=== PATIENT | male | born 1960 | race Caucasian/White ===

== ENCOUNTER 2023-01-31 10:18 | Inpatient (IN) | payer BC ==
[~2023-01-31] VITALS: Ht 188 cm; Wt 105.0 kg
[2023-01-31] MEDS ORDERED: normal saline 1000ML IV soln IVB ONE (10:55)
[2023-01-31 11:18] LABS: BASOPHILS % (AUTO) 0.2 % (0-1); EOSINOPHILS % (AUTO) 0.1 % (0-6); HEMATOCRIT 44.2 % (42.0-52.0); HEMOGLOBIN 14.7 g/dl (14.0-17.9); LYMPHOCYTES # (AUTO) 0.4 X10'3 (1.1-4.8); LYMPHOCYTES % (AUTO) 3.6 % (21-51); MEAN CORPUSCULAR HEMOGLOBIN 28.1 PG (27.0-31.0); MEAN CORPUSCULAR HGB CONC 33.3 g/dL (33.0-36.5); MEAN CORPUSCULAR VOLUME 84.3 FL (78-98); MEAN PLATELET VOLUME 8.9 FL (7.4-10.4); MONOCYTES % (AUTO) 9.8 % (2-12); NEUTROPHILS # (AUTO) 8.5 X10'3 (1.8-7.7); NEUTROPHILS % (AUTO) 86.3 % (42-75); PLATELET COUNT 249 X10'3 (140-440); RED BLOOD COUNT 5.24 X10'6 (4.70-6.10); RED CELL DISTRIBUTION WIDTH 15.5 % (11.5-14.5); WHITE BLOOD COUNT 9.9 X10'3 (4.5-11.0)
[2023-01-31 11:26] LABS: APTT 29 SECONDS (22-32)
[2023-01-31 11:28] LABS: ALANINE AMINOTRANSFERASE 34 U/L (12-78); ALBUMIN 2.7 G/DL (3.4-5.0); ALBUMIN/GLOBULIN RATIO 0.5 (1.1-1.5); ALKALINE PHOSPHATASE 87 IU/L (46-116); ANION GAP 12 (8-16); ASPARTATE AMINO TRANSFERASE 31 U/L (10-37); BILIRUBIN,TOTAL 0.4 MG/DL (0.1-1.0); BLOOD UREA NITROGEN 131 MG/DL (7-18); BUN/CREATININE RATIO 31.3 (10.0-20.0); CALCIUM 9.6 MG/DL (8.5-10.1); CHLORIDE 95 MMOL/L (99-107); CREATININE 4.18 MG/DL (0.60-1.10); GLUCOSE 134 MG/DL (70-104); LIPASE < 50 U/L (73-393); POTASSIUM 4.2 MMOL/L (3.5-5.1); SODIUM 131 MMOL/L (135-145); TOTAL CARBON DIOXIDE 23.8 MMOL/L (24-32); TOTAL PROTEIN 8.2 G/DL (6.4-8.2); eGFR 15 ML/MIN
[2023-01-31] MEDS ORDERED: normal saline 1000ml 1,000 ML IV ONE (11:35)
[2023-01-31] MEDS ORDERED: piperacillin/tazo 3.375gm/50ml 50 ML IV ONE (13:34)
[2023-01-31] MEDS ORDERED: ondansetron/PF 4mg/2ml inj IV PRN (14:20)
[2023-01-31] MEDS ORDERED: magnesium hydroxide 30ml (MOM) UD suspension PO PRN (14:20)
[2023-01-31] MEDS ORDERED: acetaminophen 325mg tablet PO PRN (14:20)
[2023-01-31] MEDS ORDERED: morphine 2 MG/ML inj. syringe IV PRN (14:20)
[2023-01-31] MEDS ORDERED: mag hydrox/Alum hydrox/simeth 30ml oral suspension PO PRN (14:20)
[2023-01-31] MEDS ORDERED: metoclopramide 5 mg/ml inj IV PRN (14:20)
[2023-01-31] MEDS ORDERED: LOSA25TA96 PO (14:25)
[2023-01-31] MEDS ORDERED: ASPI-611 PO (14:26)
[2023-01-31] MEDS ORDERED: CETI-194 PO (14:26)
[2023-01-31 14:50] LABS: CLARITY,URINE CLOUDY (Clear); COLOR,URINE YELLOW (Yellow); GLUCOSE, URINE NEGATIVE (Neg); KETONES,URINE NEGATIVE (Neg); LEUKOCYTE ESTERASE ,URINE NEGATIVE (Neg); NITRITES, URINE NEGATIVE (Neg); OCCULT BLOOD,URINE TRACE-INTACT (Neg); PROTEIN,URINE 30 mg/dl (Neg); UROBILINOGEN,URINE 0.2 E.U/dL (0.2-1.0)
[2023-01-31 14:56] LABS: UA COLLECTION TYPE CLN CATCH MIDSTREAM
[2023-01-31 15:04] LABS: BACTERIA,URINE 2+ /HPF (Neg); RBC,URINE 0-2 /HPF (0-2)
[2023-01-31 15:05] LABS: MUCUS STRANDS FEW /LPF (Neg); SQUAMOUS EPITHELIAL CELL,UR FEW /LPF (FEW); WBC CLUMPS,URINE FEW /HPF (NEGATIVE)
[2023-01-31 15:06] LABS: WBC CASTS 0-3 /LPF (NEGATIVE)
[2023-01-31] MEDS ORDERED: LOSA50TA64 PO (15:12)
--- NOTE | 2023-01-31 15:32 | NUR ---
called surgical to give report, Linda was unable to take report at this time. She will call back in 10 minutes.
[2023-01-31] MEDS: dextrose 5%-1/2 normal saline 1,000 ML IV SCH (15:48)
[2023-01-31 16:45] VITALS: BP 111/56
[2023-01-31] MEDS: HYDROcodone/acetaminophen 5mg/325mg tablet PO PRN (17:15)
--- NOTE | 2023-01-31 18:38 | NUR ---
Problems reprioritized. Patient report given, questions answered & plan of care reviewed with LEYDA CRABTREE RN.
--- NOTE | 2023-01-31 18:40 | NUR ---
Patient in room [facility] 358. I have received report from CHAR HANSON and had the opportunity to ask questions and assume patient care.
[2023-01-31] MEDS: docusate sod 100mg capsule PO SCH (20:00)
[2023-01-31] MEDS: losartan 50mg tablet PO SCH (20:03)
[2023-01-31] MEDS: heparin, porcine 5000 units/ml vial SQ SCH (20:04)
[2023-01-31 22:00] VITALS: BP 148/84
[2023-02-01] MEDS: dextrose 5%-1/2 normal saline 1,000 ML IV SCH ×4 (00:20→20:52)
--- NOTE | 2023-02-01 05:42 | NUR ---
AUDIO VISUAL FACILITIES ENGINEER documentation: I have reviewed and agree with all interventions, assessments performed and documented by SORAIDA HANSON.
[2023-02-01] MEDS: HYDROcodone/acetaminophen 5mg/325mg tablet PO PRN ×2 (05:53→11:24)
--- NOTE | 2023-02-01 06:30 | NUR ---
Problems reprioritized. Patient report given, questions answered & plan of care reviewed with ROSALEE HANSON.
--- NOTE | 2023-02-01 06:57 | NUR ---
Patient in room [facility] 358. I have received report from KAY HANSON and had the opportunity to ask questions and assume patient care.
[2023-02-01] MEDS: docusate sod 100mg capsule PO SCH ×2 (07:49→19:39)
[2023-02-01] MEDS: losartan 50mg tablet PO SCH ×2 (07:51→19:47)
[2023-02-01] MEDS: cetirizine 10mg tablet PO SCH (07:54)
[2023-02-01] MEDS: heparin, porcine 5000 units/ml vial SQ SCH ×2 (07:57→19:52)
[2023-02-01] MEDS ORDERED: aspirin 81mg, enteric-coated 1 TAB TABLET.DR PO SCH ×2 (08:00→08:29)
[2023-02-01] MEDS: morphine 2 MG/ML inj. syringe IV PRN ×2 (08:05→23:12)
[2023-02-01 09:39] LABS: ALBUMIN 2.3 G/DL (3.4-5.0); ANION GAP 15 (8-16); BLOOD UREA NITROGEN 98 MG/DL (7-18); BUN/CREATININE RATIO 52.1 (10.0-20.0); CALCIUM 9.1 MG/DL (8.5-10.1); CHLORIDE 103 MMOL/L (99-107); CREATININE 1.88 MG/DL (0.60-1.10); GLUCOSE 160 MG/DL (70-104); POTASSIUM 3.4 MMOL/L (3.5-5.1); SODIUM 137 MMOL/L (135-145); TOTAL CARBON DIOXIDE 18.8 MMOL/L (24-32); eGFR 37 ML/MIN
[2023-02-01 09:51] LABS: HEMOGLOBIN 14.4 g/dl (14.0-17.9); NEUTROPHILS # (AUTO) 3.1 X10'3 (1.8-7.7)
[2023-02-01 09:56] LABS: BASOPHILS % (AUTO) 1.3 % (0-1); EOSINOPHILS % (AUTO) 0 % (0-6); HEMATOCRIT 42.9 % (42.0-52.0); LYMPHOCYTES # (AUTO) 0.1 X10'3 (1.1-4.8); LYMPHOCYTES % (AUTO) 1.4 % (21-51); MEAN CORPUSCULAR HEMOGLOBIN 28.2 PG (27.0-31.0); MEAN CORPUSCULAR HGB CONC 33.6 g/dL (33.0-36.5); MEAN CORPUSCULAR VOLUME 84.1 FL (78-98); MEAN PLATELET VOLUME 8.8 FL (7.4-10.4); MONOCYTES # (AUTO) 0.4 X10'3 (0-0.9); MONOCYTES % (AUTO) 11.3 % (2-12); PLATELET COUNT 239 X10'3 (140-440); RED BLOOD COUNT 5.11 X10'6 (4.70-6.10); RED CELL DISTRIBUTION WIDTH 15.8 % (11.5-14.5); WHITE BLOOD COUNT 3.6 X10'3 (4.5-11.0)
[2023-02-01 10:00] VITALS: BP 93/60
[2023-02-01 10:42] LABS: PLATELET ESTIMATE NORMAL; TOTAL CELLS COUNTED 100
[2023-02-01 10:43] LABS: ANISOCYTOSIS 1+; MICROCYTOSIS 1+
[2023-02-01 12:53] LABS: BASOPHILS % (AUTO) 0.1 % (0-1); EOSINOPHILS % (AUTO) 0.1 % (0-6); HEMATOCRIT 42.6 % (42.0-52.0); HEMOGLOBIN 14.4 g/dl (14.0-17.9); LYMPHOCYTES # (AUTO) 0.5 X10'3 (1.1-4.8); LYMPHOCYTES % (AUTO) 5.5 % (21-51); MEAN CORPUSCULAR HEMOGLOBIN 28.4 PG (27.0-31.0); MEAN CORPUSCULAR HGB CONC 33.8 g/dL (33.0-36.5); MEAN CORPUSCULAR VOLUME 83.9 FL (78-98); MEAN PLATELET VOLUME 8.7 FL (7.4-10.4); MONOCYTES # (AUTO) 1.3 X10'3 (0-0.9); MONOCYTES % (AUTO) 12.6 % (2-12); NEUTROPHILS # (AUTO) 8.2 X10'3 (1.8-7.7); NEUTROPHILS % (AUTO) 81.7 % (42-75); PLATELET COUNT 244 X10'3 (140-440); RED BLOOD COUNT 5.07 X10'6 (4.70-6.10); RED CELL DISTRIBUTION WIDTH 15.6 % (11.5-14.5)
--- NOTE | 2023-02-01 17:58 | NUR ---
patient seen by Dr rees and Dr andersen. NG placed as abdomen distended. patient painful medicated as per EMAR . onlt 50mls clearish drainage observed. patient is for surgery in am per Dr andersen.
[2023-02-01 18:00] VITALS: BP 100/63
[2023-02-01] MEDS ORDERED: magnesium 2GM in 50ml NS 50 ML IV PRN (18:10)
[2023-02-01] MEDS ORDERED: potassium Cl 40MEQ/1/2NS 520ml 520 ML IV PRN (18:10)
[2023-02-01] MEDS ORDERED: magnesium 4gm in 100ml NS 100 ML IV PRN (18:10)
[2023-02-01] MEDS ORDERED: potassium Cl 20 mEq SR tablet PO PRN ×2 (18:10)
[2023-02-01] MEDS ORDERED: magnesium Cl slow-release 64mg tablet PO PRN (18:10)
--- NOTE | 2023-02-01 18:34 | NUR ---
Problems reprioritized. Patient report given, questions answered & plan of care reviewed with Lourdes HANSON.
--- NOTE | 2023-02-01 18:38 | NUR ---
Patient in room [facility] 347. I have received report from ROSALEE HANSON and had the opportunity to ask questions and assume patient care.
[2023-02-01] MEDS: piperacillin/tazo 4.5gm/100ml 100 ML IV SCH (19:06)
[2023-02-01] MEDS ORDERED: Potassium Cl 40 MEQ in sodium chloride 0.45% 500 ML IV ONE (19:20)
[2023-02-01] MEDS: K and/or MAG REPLACEMENT MC SCH (20:00)
[2023-02-01] MEDS: pantoprazole 40MG/NS 100ML BAG 100 ML IV SCH (20:05)
[2023-02-01 22:00] VITALS: BP 98/57
[2023-02-02] VITALS (16 sets, daily range): BP systolic 83–121; BP diastolic 44–72
--- NOTE | 2023-02-02 05:00 | NUR ---
Pt was Prepped for surgery.
--- NOTE | 2023-02-02 05:14 | NUR ---
Called Dr. Luis to make him aware of the abnormal EKG strip. I reported that there was a left bundle branch block, and an abnormal P axis rate. Hospitalist said, "that's okay", No orders were given.
[2023-02-02] MEDS: piperacillin/tazo 4.5gm/100ml 100 ML IV SCH ×2 (05:54→17:00)
[2023-02-02 06:36] LABS: BASOPHILS % (AUTO) 0.1 % (0-1); EOSINOPHILS % (AUTO) 0.2 % (0-6); HEMATOCRIT 40.8 % (42.0-52.0); HEMOGLOBIN 13.6 g/dl (14.0-17.9); LYMPHOCYTES # (AUTO) 0.8 X10'3 (1.1-4.8); LYMPHOCYTES % (AUTO) 6.2 % (21-51); MEAN CORPUSCULAR HEMOGLOBIN 28.1 PG (27.0-31.0); MEAN CORPUSCULAR HGB CONC 33.2 g/dL (33.0-36.5); MEAN CORPUSCULAR VOLUME 84.6 FL (78-98); MEAN PLATELET VOLUME 8.9 FL (7.4-10.4); MONOCYTES # (AUTO) 1.6 X10'3 (0-0.9); MONOCYTES % (AUTO) 11.8 % (2-12); NEUTROPHILS # (AUTO) 10.9 X10'3 (1.8-7.7); NEUTROPHILS % (AUTO) 81.7 % (42-75); PLATELET COUNT 241 X10'3 (140-440); RED BLOOD COUNT 4.82 X10'6 (4.70-6.10); WHITE BLOOD COUNT 13.4 X10'3 (4.5-11.0)
--- NOTE | 2023-02-02 06:36 | NUR ---
Problems reprioritized. Patient report given, questions answered & plan of care reviewed with ROSALEE HANSON.
[2023-02-02 06:39] LABS: PRE OP PARTIAL THROMB. TIME 29 SECONDS (22-32)
[2023-02-02 06:45] LABS: ALANINE AMINOTRANSFERASE 40 U/L (12-78); ALBUMIN 1.9 G/DL (3.4-5.0); ALBUMIN/GLOBULIN RATIO 0.4 (1.1-1.5); ALKALINE PHOSPHATASE 88 IU/L (46-116); ANION GAP 13 (8-16); ASPARTATE AMINO TRANSFERASE 35 U/L (10-37); BILIRUBIN,TOTAL 1.3 MG/DL (0.1-1.0); BLOOD UREA NITROGEN 112 MG/DL (7-18); BUN/CREATININE RATIO 42.7 (10.0-20.0); CALCIUM 9.4 MG/DL (8.5-10.1); CHLORIDE 105 MMOL/L (99-107); CREATININE 2.62 MG/DL (0.60-1.10); GLUCOSE 113 MG/DL (70-104); MAGNESIUM 2.7 MG/DL (1.5-2.4); PHOSPHORUS 4.3 MG/DL (2.3-4.5); POTASSIUM 4.4 MMOL/L (3.5-5.1); SODIUM 139 MMOL/L (135-145); TOTAL CARBON DIOXIDE 21.1 MMOL/L (24-32); TOTAL PROTEIN 6.7 G/DL (6.4-8.2); eGFR 25 ML/MIN
--- NOTE | 2023-02-02 06:51 | NUR ---
Patient in room [facility] 347. I have received report from KAY HANSON and had the opportunity to ask questions and assume patient care.
[2023-02-02 07:52] LABS: ANISOCYTOSIS 1+; MICROCYTOSIS 1+; PLATELET ESTIMATE NORMAL; TOTAL CELLS COUNTED 100
[2023-02-02] MEDS: cetirizine 10mg tablet PO SCH (08:00)
[2023-02-02] MEDS: docusate sod 100mg capsule PO SCH ×2 (08:00→20:00)
[2023-02-02] MEDS: K and/or MAG REPLACEMENT MC SCH ×2 (08:00→20:00)
[2023-02-02] MEDS: heparin, porcine 5000 units/ml vial SQ SCH ×2 (08:00→20:00)
[2023-02-02] MEDS: losartan 50mg tablet PO SCH ×2 (08:00→20:00)
[2023-02-02] MEDS: pantoprazole 40MG/NS 100ML BAG 100 ML IV SCH ×2 (08:13→21:17)
[2023-02-02] MEDS: dextrose 5%-1/2 normal saline 1,000 ML IV SCH (12:40)
[2023-02-02 12:50] LABS: BASOPHILS % (AUTO) 0.2 % (0-1); EOSINOPHILS % (AUTO) 0.3 % (0-6); HEMOGLOBIN 13.6 g/dl (14.0-17.9); LYMPHOCYTES # (AUTO) 0.8 X10'3 (1.1-4.8); LYMPHOCYTES % (AUTO) 5.2 % (21-51); MEAN CORPUSCULAR HEMOGLOBIN 27.6 PG (27.0-31.0); MEAN CORPUSCULAR HGB CONC 32.5 g/dL (33.0-36.5); MEAN PLATELET VOLUME 8.5 FL (7.4-10.4); MONOCYTES # (AUTO) 1.6 X10'3 (0-0.9); MONOCYTES % (AUTO) 10.7 % (2-12); NEUTROPHILS # (AUTO) 12.4 X10'3 (1.8-7.7); NEUTROPHILS % (AUTO) 83.6 % (42-75); PLATELET COUNT 256 X10'3 (140-440); RED BLOOD COUNT 4.94 X10'6 (4.70-6.10); RED CELL DISTRIBUTION WIDTH 15.9 % (11.5-14.5); WHITE BLOOD COUNT 14.9 X10'3 (4.5-11.0)
[2023-02-02 16:14] LABS: HBSAG SCREEN Negative (Negative); HEP B CORE AB, TOT Negative (Negative)
[2023-02-02] MEDS ORDERED: albumin (human) 25% 100ml IV 100 ML in dextrose 5% water 500ml 400 ML IV ONE (16:15)
[2023-02-02] MEDS ORDERED: albumin (Human) 5% 250ml 500 ML IV ONE ×2 (16:20→17:00)
[2023-02-02] MEDS ORDERED: morphine 4 MG/ML inj SYRINge IV PRN (16:30)
[2023-02-02] MEDS ORDERED: ringers solution, lacted 1,000 ML IV SCH (16:30)
[2023-02-02] MEDS ORDERED: proCHLORperazine 10 MG/2 ml inj IV PRN (16:30)
[2023-02-02] MEDS ORDERED: ondansetron/PF 4mg/2ml inj IV PRN (16:30)
[2023-02-02] MEDS ORDERED: morphine 2 MG/ML inj. syringe IV PRN (16:30)
[2023-02-02] MEDS ORDERED: meperidine/PF 25mg/ml syringe IV PRN ×3 (16:30)
[2023-02-02 16:55] LABS: ANION GAP 11 (8-16); BLOOD UREA NITROGEN 91 MG/DL (7-18); BUN/CREATININE RATIO 48.4 (10.0-20.0); CALCIUM 9.5 MG/DL (8.5-10.1); CHLORIDE 107 MMOL/L (99-107); CREATININE 1.88 MG/DL (0.60-1.10); GLUCOSE 122 MG/DL (70-104); POTASSIUM 3.9 MMOL/L (3.5-5.1); SODIUM 141 MMOL/L (135-145); TOTAL CARBON DIOXIDE 23.5 MMOL/L (24-32); eGFR 37 ML/MIN
[2023-02-02] MEDS ORDERED: etomidate 2mg/ml inj. ONE (17:05)
[2023-02-02] MEDS ORDERED: sevoflurane 250ml liquid IH ONE (17:05)
--- NOTE | 2023-02-02 17:05 | NUR ---
patient seen by Dr rees and Dr harvey, repeat CT done, labs, echo. patient is for OR per Dr Harvey. Taken to OR 1700hrs
[2023-02-02] MEDS ORDERED: midazolam 1 mg/ML 2ml injection ONE (17:16)
[2023-02-02] MEDS ORDERED: fentaNYL /PF 50mcg/ml 5ml ampule ONE (17:16)
[2023-02-02] MEDS ORDERED: rocuronium 10mg/ml inj IV ONE ×2 (17:46→19:02)
--- NOTE | 2023-02-02 18:39 | NUR ---
Patient in room [facility] 347. I have received report from ROSALEE HANSON and had the opportunity to ask questions and assume patient care.
[2023-02-02] MEDS ORDERED: BUPIVAcaine/PF 2.5 mg/ml (0.25%) 30ml vial ONE (18:40)
[2023-02-02] MEDS ORDERED: BUPIVACAINE liposomal/PF 13.3 MG/ML vial IM ONE (18:40)
[2023-02-02] MEDS: dextrose 5%-lactated ringers 1,000 ML IV SCH (19:15)
[2023-02-02] MEDS ORDERED: HYDROmorphone inj. 0.5 MG/0.5 ML DISP.SYRIN IV PRN (19:15)
[2023-02-02] MEDS ORDERED: neostigmine methylsulfate 1 MG/ML 10ml vial ONE (19:29)
[2023-02-02] MEDS ORDERED: glycopyrrolate 0.2mg/ml inj ONE (19:29)
--- NOTE | 2023-02-02 19:35 | NUR ---
Received from OR via , accompanied by Anesthesiologist VIGNESH and report given by Anesthesiolgist. PATIENT WITH NGT TO LOW CONTINOUS. ABDOMINAL DRESSING IS CDI. VSS. 10L MASK ON WITH 996% SATURATIONS. PATIENT WITH BETHANY DRAIN THAT WAS EMPTIED FOR 60CC 0F WASH. PATIENT WITH 20G PIVIN RIGHT AC RUNNING LR AT 100. SCDS DONNED. Addendum: 02/02/23 at 1942 by Dre Ny RN, RN Amended: Links added.
[2023-02-02 20:05] LABS: ABG BASE EXCESS -7.7 mmol/L (-2.0-2.0); ABG HCO3 17.3 mmol/L (22.0-26.0); ABG OXYGEN SATURATION 93.7 % (94-97); ABG PCO2 (T) 33.5 mmHg (35.0-48.0); ABG PO2 (T) 71.5 mmHg (75.0-100.0); FCOHb 0.6 % (0.0-3.9); FLOW 3 L/min; FMetHb 0.7 % (0.0-1.5); FO2Hb 92.5 % (94-97); PATIENT TEMPERATURE 36.8; TOTAL HEMOGLOBIN 13.9 G/dl (14.0-17.9)
[2023-02-02] MEDS ORDERED: acetaminophen 1,000mg/100ml IV 100 ML IV STA (20:06)
--- NOTE | 2023-02-02 20:25 | NUR ---
REPORT GIVEN AND ALL QUESTIONS ANSWERED. PATIENT TRANSFERRED TO SURG. LABELED BELONGINGS PRESENT AND DELIVERED TO ROOM. RN PRESENT ALL CRITERIA FOR TRANSFER BACK TO THE FLOOR HAS BEEN ACHIEVED. VSS. PAIN AT A TOLERABLE LEVEL. BED LOW, CALL LIGHT PRESENT AND 2 RAILS DOWN. RN AWARE THAT PATIENT HAS ARRIVED. PRUDENCE PRESENT TO ACCEPT CARE OF PATIENT. Addendum: 02/02/23 at 2037 by Dre Ny RN, RN Amended: Links added.
--- NOTE | 2023-02-02 20:30 | NUR ---
MD UMANZOR NOTIFIED OF ABG PER MD MEDELLIN REQUEST. PATIENT TAKEN TO FLOOR VIA BED AND MET BY RN PRUDENCE. SET UP WITH VS AND RN PRESENT TO ACCEPT AND ASSESS PATIENT. PATIENT HOOKED TO LOW SUCTION AND PLACED ON O2 VIA NASAL CANNULA. BETHANY WITH UNDER 30CC OF SEROSANGUENOUS DRAINAGE IN BULB AND ABDOMINAL DRESSING WAS CDI. PIV STILL RUNNING ACETAMINOPHEN. NO BELONGINGS WITH PATIENT IN RR. CARE ASSUMED BY TICO. Addendum: 02/02/23 at 2031 by Dre Chaudhry - VALENTIN HANSON Amended: Links added.
--- NOTE | 2023-02-02 20:44 | NUR ---
PATIENT BACK IN THE ROOM FROM OR AND VSS AND WILL CONTINUE TO MONITOR.
--- NOTE | 2023-02-02 21:08 | NUR ---
Heparin not administered, patient just coming back from OR and plt count at 256
[2023-02-03] VITALS (13 sets, daily range): BP systolic 94–123; BP diastolic 46–74
[2023-02-03] MEDS: dextrose 5%-lactated ringers 1,000 ML IV SCH ×4 (01:55→23:23)
[2023-02-03] MEDS: dextrose 5%-1/2 normal saline 1,000 ML IV SCH (02:20)
[2023-02-03 04:46] LABS: BASOPHILS % (AUTO) 0.2 % (0-1); EOSINOPHILS % (AUTO) 0.1 % (0-6); HEMATOCRIT 40.5 % (42.0-52.0); HEMOGLOBIN 13.4 g/dl (14.0-17.9); LYMPHOCYTES # (AUTO) 0.2 X10'3 (1.1-4.8); LYMPHOCYTES % (AUTO) 1.1 % (21-51); MEAN CORPUSCULAR HEMOGLOBIN 27.7 PG (27.0-31.0); MEAN CORPUSCULAR VOLUME 83.9 FL (78-98); MEAN PLATELET VOLUME 8.6 FL (7.4-10.4); MONOCYTES # (AUTO) 1.6 X10'3 (0-0.9); MONOCYTES % (AUTO) 8.7 % (2-12); NEUTROPHILS # (AUTO) 16.2 X10'3 (1.8-7.7); NEUTROPHILS % (AUTO) 89.9 % (42-75); PLATELET COUNT 269 X10'3 (140-440); RED BLOOD COUNT 4.83 X10'6 (4.70-6.10); RED CELL DISTRIBUTION WIDTH 16.4 % (11.5-14.5)
[2023-02-03 04:51] LABS: ALANINE AMINOTRANSFERASE 34 U/L (12-78); ALBUMIN 1.8 G/DL (3.4-5.0); ALBUMIN/GLOBULIN RATIO 0.5 (1.1-1.5); ALKALINE PHOSPHATASE 70 IU/L (46-116); ANION GAP 14 (8-16); ASPARTATE AMINO TRANSFERASE 44 U/L (10-37); BILIRUBIN,TOTAL 1.6 MG/DL (0.1-1.0); BLOOD UREA NITROGEN 82 MG/DL (7-18); BUN/CREATININE RATIO 43.9 (10.0-20.0); CALCIUM 8.6 MG/DL (8.5-10.1); CHLORIDE 111 MMOL/L (99-107); CREATININE 1.87 MG/DL (0.60-1.10); GLUCOSE 152 MG/DL (70-104); MAGNESIUM 2.5 MG/DL (1.5-2.4); PHOSPHORUS 3.6 MG/DL (2.3-4.5); POTASSIUM 4.3 MMOL/L (3.5-5.1); SODIUM 145 MMOL/L (135-145); TOTAL CARBON DIOXIDE 20.4 MMOL/L (24-32); TOTAL PROTEIN 5.8 G/DL (6.4-8.2); eGFR 37 ML/MIN
[2023-02-03] MEDS: piperacillin/tazo 4.5gm/100ml 100 ML IV SCH ×2 (05:37→17:51)
--- NOTE | 2023-02-03 06:19 | NUR ---
Problems reprioritized. Patient report given, questions answered & plan of care reviewed with CÉSAR HANSON.
[2023-02-03 07:08] LABS: ANISOCYTOSIS 1+; PLATELET ESTIMATE NORMAL; TOTAL CELLS COUNTED 100
[2023-02-03 07:09] LABS: ROULEAUX 1+; TARGET CELLS FEW
[2023-02-03] MEDS: pantoprazole 40MG/NS 100ML BAG 100 ML IV SCH ×2 (07:44→21:05)
[2023-02-03] MEDS: docusate sod 100mg capsule PO SCH ×2 (07:50→21:11)
[2023-02-03] MEDS: cetirizine 10mg tablet PO SCH (07:50)
[2023-02-03] MEDS: heparin, porcine 5000 units/ml vial SQ SCH ×2 (07:51→21:13)
[2023-02-03] MEDS: losartan 50mg tablet PO SCH ×2 (07:52→21:12)
[2023-02-03] MEDS: K and/or MAG REPLACEMENT MC SCH ×2 (07:52→20:00)
--- NOTE | 2023-02-03 09:03 | NUR ---
LAB CALLED WITH INITIAL RESULTS OF PERITONEAL FLUID COLLECTION: GRAM NEGATIVE RODS. NOTIFIED MD VIA [facility]: Message: ROOM 3047B [facility] - PERITONEAL FLUID RESULTS (LAB) PLEASE TAKE A LOOK AT LAB RESULTS - THERE ARE GRAM NEGATIVE RODS, AND GRAM + RODS COCCI AND CLUSTERS OVERALL LOTS OF WBC, LAB WILL KNOW MORE AT END OF DAY - EDELMIRA Yu RN [id number]
[2023-02-03] MEDS ORDERED: dextrose 5%-normal saline 1,000 ML IV SCH (13:50)
[2023-02-03] MEDS ORDERED: vancomycin/NS 1 GM ADD-VANTAGE 250 ML IV SCH (15:00)
[2023-02-03 15:29] LABS: CLARITY,URINE SLIGHTLY CLOUDY (Clear); COLOR,URINE YELLOW (Yellow); GLUCOSE, URINE NEGATIVE (Neg); KETONES,URINE NEGATIVE (Neg); LEUKOCYTE ESTERASE ,URINE NEGATIVE (Neg); NITRITES, URINE NEGATIVE (Neg); OCCULT BLOOD,URINE SMALL (Neg); PROTEIN,URINE TRACE mg/dl (Neg)
[2023-02-03 15:30] LABS: UA COLLECTION TYPE FOLEY CATH
[2023-02-03 15:43] LABS: MUCUS STRANDS FEW /LPF (Neg); SQUAMOUS EPITHELIAL CELL,UR FEW /LPF (FEW)
[2023-02-03 15:45] LABS: SODIUM,URINE RANDOM < 15 MEQ/L; TOTAL PROTEIN,URINE RANDOM 58.3 MG/DL
[2023-02-03 15:47] LABS: BACTERIA,URINE FEW /HPF (Neg); RBC,URINE 0-2 /HPF (0-2); WBC,URINE 0-4 /HPF (0-4)
[2023-02-03 16:33] LABS: UA EOSINOPHILS NO EOS /HPF
--- NOTE | 2023-02-03 23:52 | NUR ---
Pts residual was 5ml,NG tube removed per MDs order
[2023-02-04] MEDS: piperacillin/tazo 4.5gm/100ml 100 ML IV SCH ×2 (04:54→16:49)
[2023-02-04 05:47] LABS: ALANINE AMINOTRANSFERASE 36 U/L (12-78); ALBUMIN 1.6 G/DL (3.4-5.0); ALBUMIN/GLOBULIN RATIO 0.4 (1.1-1.5); ALKALINE PHOSPHATASE 72 IU/L (46-116); ANION GAP 9 (8-16); ASPARTATE AMINO TRANSFERASE 54 U/L (10-37); BILIRUBIN,TOTAL 1.4 MG/DL (0.1-1.0); BLOOD UREA NITROGEN 49 MG/DL (7-18); BUN/CREATININE RATIO 42.2 (10.0-20.0); CALCIUM 8.8 MG/DL (8.5-10.1); CHLORIDE 118 MMOL/L (99-107); CREATININE 1.16 MG/DL (0.60-1.10); GLUCOSE 128 MG/DL (70-104); MAGNESIUM 2.3 MG/DL (1.5-2.4); PHOSPHORUS 2.6 MG/DL (2.3-4.5); POTASSIUM 4.1 MMOL/L (3.5-5.1); SODIUM 152 MMOL/L (135-145); TOTAL PROTEIN 5.6 G/DL (6.4-8.2); eGFR 64 ML/MIN
[2023-02-04 05:48] LABS: BASOPHILS % (AUTO) 0.1 % (0-1); EOSINOPHILS # (AUTO) 0.1 X10'3 (0-0.9); EOSINOPHILS % (AUTO) 0.5 % (0-6); HEMATOCRIT 37.7 % (42.0-52.0); HEMOGLOBIN 12.4 g/dl (14.0-17.9); LYMPHOCYTES # (AUTO) 0.7 X10'3 (1.1-4.8); LYMPHOCYTES % (AUTO) 3.7 % (21-51); MEAN CORPUSCULAR HEMOGLOBIN 27.6 PG (27.0-31.0); MEAN CORPUSCULAR HGB CONC 32.9 g/dL (33.0-36.5); MEAN CORPUSCULAR VOLUME 83.9 FL (78-98); MEAN PLATELET VOLUME 8.6 FL (7.4-10.4); MONOCYTES # (AUTO) 1.6 X10'3 (0-0.9); MONOCYTES % (AUTO) 8.3 % (2-12); NEUTROPHILS % (AUTO) 87.4 % (42-75); PLATELET COUNT 281 X10'3 (140-440); RED BLOOD COUNT 4.49 X10'6 (4.70-6.10); RED CELL DISTRIBUTION WIDTH 16.2 % (11.5-14.5); WHITE BLOOD COUNT 19.5 X10'3 (4.5-11.0)
[2023-02-04 06:00] VITALS: BP 140/62
--- NOTE | 2023-02-04 06:08 | NUR ---
Problems reprioritized. Patient report given, questions answered & plan of care reviewed with Any HANSON.
--- NOTE | 2023-02-04 06:45 | NUR ---
Patient in room [facility] 347B. I have received report from VALENTIN CHINCHILLA and had the opportunity to ask questions and assume patient care.
[2023-02-04] MEDS: K and/or MAG REPLACEMENT MC SCH ×2 (08:00→20:00)
[2023-02-04] MEDS: dextrose 5%-lactated ringers 1,000 ML IV SCH ×2 (09:50→16:49)
[2023-02-04 10:00] VITALS: BP 145/82
[2023-02-04] MEDS: pantoprazole 40MG/NS 100ML BAG 100 ML IV SCH ×2 (10:11→20:29)
[2023-02-04] MEDS: losartan 50mg tablet PO SCH ×2 (10:18→20:31)
[2023-02-04] MEDS: docusate sod 100mg capsule PO SCH ×2 (10:18→20:31)
[2023-02-04] MEDS: cetirizine 10mg tablet PO SCH (10:19)
[2023-02-04] MEDS: vancomycin/NS 1 GM ADD-VANTAGE 250 ML IV SCH ×2 (10:20→22:05)
[2023-02-04] MEDS: heparin, porcine 5000 units/ml vial SQ SCH ×2 (10:20→20:31)
[2023-02-04 18:00] VITALS: BP 149/87
[2023-02-04 22:00] VITALS: BP 119/78
[2023-02-05] MEDS: dextrose 5%-lactated ringers 1,000 ML IV SCH ×2 (03:15→06:30)
[2023-02-05] MEDS: piperacillin/tazo 4.5gm/100ml 100 ML IV SCH (05:55)
--- NOTE | 2023-02-05 06:15 | NUR ---
Patient in room [facility] 347. I have received report from Germaine HANSON and had the opportunity to ask questions and assume patient care.
[2023-02-05 06:57] LABS: BASOPHILS % (AUTO) 0.1 % (0-1); EOSINOPHILS # (AUTO) 0.3 X10'3 (0-0.9); EOSINOPHILS % (AUTO) 1.1 % (0-6); HEMATOCRIT 38.4 % (42.0-52.0); HEMOGLOBIN 12.6 g/dl (14.0-17.9); LYMPHOCYTES % (AUTO) 3.8 % (21-51); MEAN CORPUSCULAR HEMOGLOBIN 27.6 PG (27.0-31.0); MEAN CORPUSCULAR HGB CONC 32.9 g/dL (33.0-36.5); MEAN CORPUSCULAR VOLUME 83.8 FL (78-98); MEAN PLATELET VOLUME 8.4 FL (7.4-10.4); MONOCYTES # (AUTO) 1.8 X10'3 (0-0.9); NEUTROPHILS # (AUTO) 23.2 X10'3 (1.8-7.7); PLATELET COUNT 321 X10'3 (140-440); RED BLOOD COUNT 4.58 X10'6 (4.70-6.10); RED CELL DISTRIBUTION WIDTH 16.2 % (11.5-14.5)
--- NOTE | 2023-02-05 06:58 | NUR ---
Problems reprioritized. Patient report given, questions answered & plan of care reviewed with VALENTIN FARRELL & VALENTIN JASON.
[2023-02-05 07:00] VITALS: BP 152/86
[2023-02-05 07:01] LABS: WHITE BLOOD COUNT 26.4 X10'3 (4.5-11.0)
[2023-02-05 07:09] LABS: ALANINE AMINOTRANSFERASE 39 U/L (12-78); ALBUMIN 1.8 G/DL (3.4-5.0); ALBUMIN/GLOBULIN RATIO 0.4 (1.1-1.5); ALKALINE PHOSPHATASE 85 IU/L (46-116); ANION GAP 9 (8-16); ASPARTATE AMINO TRANSFERASE 50 U/L (10-37); BILIRUBIN,TOTAL 0.9 MG/DL (0.1-1.0); BLOOD UREA NITROGEN 37 MG/DL (7-18); BUN/CREATININE RATIO 38.5 (10.0-20.0); CHLORIDE 118 MMOL/L (99-107); CREATININE 0.96 MG/DL (0.60-1.10); GLUCOSE 122 MG/DL (70-104); MAGNESIUM 2.1 MG/DL (1.5-2.4); PHOSPHORUS 3.1 MG/DL (2.3-4.5); POTASSIUM 4.2 MMOL/L (3.5-5.1); SODIUM 153 MMOL/L (135-145); TOTAL PROTEIN 6.1 G/DL (6.4-8.2); eGFR 79 ML/MIN
--- NOTE | 2023-02-05 07:11 | NUR ---
CRITICAL WBC 26.4, DR CAZARES PAGED AWAITING CALL BACK
[2023-02-05 07:21] LABS: TOTAL CELLS COUNTED 100
[2023-02-05 07:22] LABS: ANISOCYTOSIS 1+; PLATELET ESTIMATE NORMAL
[2023-02-05] MEDS: pantoprazole 40MG/NS 100ML BAG 100 ML IV SCH ×2 (07:54→20:06)
[2023-02-05] MEDS: K and/or MAG REPLACEMENT MC SCH ×2 (08:00→20:00)
[2023-02-05] MEDS: cetirizine 10mg tablet PO SCH (08:02)
[2023-02-05] MEDS: docusate sod 100mg capsule PO SCH ×2 (08:03→20:05)
[2023-02-05] MEDS: losartan 50mg tablet PO SCH ×2 (08:04→20:05)
[2023-02-05] MEDS: heparin, porcine 5000 units/ml vial SQ SCH ×2 (08:05→20:05)
[2023-02-05] MEDS: vancomycin/NS 1 GM ADD-VANTAGE 250 ML IV SCH ×2 (09:02→20:09)
--- NOTE | 2023-02-05 09:43 | NUR ---
Initial: Pt presented with c/o abdominal pain and admit for JUDITH, possible SBO, peritonitis, and ruptured appendix. Pt with septic shock per MD note. Pt currently POD #3 s/p exploratory laparotomy with open appendectomy. Pt has been NPO since admit. Per EMR pt continues with abdominal distention and pain. Recommend advancing to regular diet as medically indicated and initiating nutrition support if unable to advance PO diet. Noted pt receiving D5LR at 125 mL/hr providing 510 kcal/day. LBM 01/31. Pt receiving routine bowel care and with PRN MoM and Reglan available. No appropriate nutrition intervention at this time in view of NPO status. Will continue to follow closely. Recommendations: 1) Advance to regular diet as medically indicated 2) Initiate nutrition support if unable to advance PO diet 3) Routine bowel care 4) Weekly scaled weights Addendum: 02/05/23 at [address] Amended: Links added.
[2023-02-05 10:00] VITALS: BP 169/90
[2023-02-05] MEDS ORDERED: normal saline 1000ml 1,000 ML IV SCH (12:15)
--- NOTE | 2023-02-05 12:56 | NUR ---
Message: Rupert ArnettB, Pt has a BP of 165/92. There are no PRN high BP meds. Did you want a med started for him? Dong [phone]
--- NOTE | 2023-02-05 14:10 | NUR ---
Pt had an afternoon BP of 165/92 and had no PRN BP meds. Dr notified and no orders put in. Will continue to monitor pt. Pt is asymptomatic and feels good.
[2023-02-05] MEDS: piperacillin/tazo 3.375gm/50ml 50 ML IV SCH (16:26)
[2023-02-05] MEDS ORDERED: VANCOMYCIN LEVEL IV ONE (16:30)
[2023-02-05 18:00] VITALS: BP 167/90
--- NOTE | 2023-02-05 18:31 | NUR ---
Problems reprioritized. Patient report given, questions answered & plan of care reviewed with Prudence RN. Pt stable at shift report.
--- NOTE | 2023-02-05 18:53 | NUR ---
Patient in room [facility] 347. I have received report from CASIE HANSON and had the opportunity to ask questions and assume patient care.
[2023-02-05] MEDS: dextrose 5%-water 1,000 ML IV SCH (20:14)
[2023-02-05 22:00] VITALS: BP 161/91
--- NOTE | 2023-02-05 23:11 | NUR ---
Charting by Annalisa LINARES reviewed by Glenn Velásquez RN
[2023-02-06] MEDS: piperacillin/tazo 3.375gm/50ml 50 ML IV SCH ×4 (00:34→22:53)
--- NOTE | 2023-02-06 06:24 | NUR ---
Problems reprioritized. Patient report given, questions answered & plan of care reviewed with APOLINAR HANSON.
[2023-02-06 07:00] VITALS: BP 139/85
[2023-02-06] MEDS: heparin, porcine 5000 units/ml vial SQ SCH ×2 (08:00→20:09)
[2023-02-06] MEDS: K and/or MAG REPLACEMENT MC SCH ×2 (08:00→19:59)
[2023-02-06 08:10] LABS: ALANINE AMINOTRANSFERASE 32 U/L (12-78); ALBUMIN 1.6 G/DL (3.4-5.0); ALBUMIN/GLOBULIN RATIO 0.4 (1.1-1.5); ANION GAP 8 (8-16); ASPARTATE AMINO TRANSFERASE 38 U/L (10-37); BILIRUBIN,TOTAL 0.9 MG/DL (0.1-1.0); BLOOD UREA NITROGEN 30 MG/DL (7-18); BUN/CREATININE RATIO 33.3 (10.0-20.0); CALCIUM 8.3 MG/DL (8.5-10.1); CHLORIDE 114 MMOL/L (99-107); GLUCOSE 107 MG/DL (70-104); MAGNESIUM 1.8 MG/DL (1.5-2.4); PHOSPHORUS 3.7 MG/DL (2.3-4.5); POTASSIUM 4.1 MMOL/L (3.5-5.1); SODIUM 147 MMOL/L (135-145); TOTAL CARBON DIOXIDE 25.2 MMOL/L (24-32); TOTAL PROTEIN 5.4 G/DL (6.4-8.2); eGFR 86 ML/MIN
[2023-02-06] MEDS: pantoprazole 40MG/NS 100ML BAG 100 ML IV SCH ×2 (08:38→20:07)
[2023-02-06] MEDS: docusate sod 100mg capsule PO SCH ×2 (08:46→20:07)
[2023-02-06] MEDS: cetirizine 10mg tablet PO SCH (08:46)
[2023-02-06] MEDS: losartan 50mg tablet PO SCH ×2 (08:47→20:08)
[2023-02-06 08:55] LABS: ALKALINE PHOSPHATASE 71 IU/L (46-116)
[2023-02-06] MEDS: VANCOmycin 1250MG/NS 250ml Bag 250 ML IV SCH ×2 (09:14→20:12)
[2023-02-06 12:00] VITALS: BP 135/78
[2023-02-06 12:42] LABS: BASOPHILS % (AUTO) 0.2 % (0-1); EOSINOPHILS # (AUTO) 0.2 X10'3 (0-0.9); EOSINOPHILS % (AUTO) 0.9 % (0-6); HEMATOCRIT 38.2 % (42.0-52.0); HEMOGLOBIN 12.3 g/dl (14.0-17.9); LYMPHOCYTES # (AUTO) 1.2 X10'3 (1.1-4.8); LYMPHOCYTES % (AUTO) 5.6 % (21-51); MEAN CORPUSCULAR HEMOGLOBIN 27.5 PG (27.0-31.0); MEAN CORPUSCULAR HGB CONC 32.1 g/dL (33.0-36.5); MEAN CORPUSCULAR VOLUME 85.7 FL (78-98); MEAN PLATELET VOLUME 8.7 FL (7.4-10.4); MONOCYTES # (AUTO) 1.7 X10'3 (0-0.9); MONOCYTES % (AUTO) 8.1 % (2-12); NEUTROPHILS # (AUTO) 17.4 X10'3 (1.8-7.7); NEUTROPHILS % (AUTO) 85.2 % (42-75); PLATELET COUNT 249 X10'3 (140-440); RED BLOOD COUNT 4.46 X10'6 (4.70-6.10); RED CELL DISTRIBUTION WIDTH 16.5 % (11.5-14.5); WHITE BLOOD COUNT 20.4 X10'3 (4.5-11.0)
[2023-02-06 13:00] LABS: NUCLEATED RED BLOOD CELLS 1 /100WBC (0-0); TOTAL CELLS COUNTED 100
[2023-02-06 13:01] LABS: ANISOCYTOSIS 1+; PLATELET ESTIMATE NORMAL
[2023-02-06] MEDS ORDERED: VANCOMYCIN LEVEL IV ONE (14:30)
[2023-02-06] MEDS: dextrose 5%-water 1,000 ML IV SCH ×2 (14:55→22:50)
[2023-02-06 18:00] VITALS: BP 155/83
--- NOTE | 2023-02-06 18:12 | NUR ---
Problems reprioritized. Patient report given, questions answered & plan of care reviewed with VALENTIN GARDNER.
[2023-02-06] MEDS: ipratropium/albuterol 3ml nebule NEB PRN (20:06)
[2023-02-06] MEDS: magnesium hydroxide 30ml (MOM) UD suspension PO SCH (20:07)
[2023-02-06 22:00] VITALS: BP 144/80
[2023-02-07 06:36] LABS: BASOPHILS % (AUTO) 0 % (0-1); EOSINOPHILS # (AUTO) 0.4 X10'3 (0-0.9); EOSINOPHILS % (AUTO) 2.4 % (0-6); HEMATOCRIT 35.4 % (42.0-52.0); HEMOGLOBIN 11.5 g/dl (14.0-17.9); LYMPHOCYTES # (AUTO) 1.2 X10'3 (1.1-4.8); LYMPHOCYTES % (AUTO) 6.8 % (21-51); MEAN CORPUSCULAR HEMOGLOBIN 27.2 PG (27.0-31.0); MEAN CORPUSCULAR HGB CONC 32.5 g/dL (33.0-36.5); MEAN CORPUSCULAR VOLUME 83.8 FL (78-98); MEAN PLATELET VOLUME 8.4 FL (7.4-10.4); MONOCYTES # (AUTO) 1.3 X10'3 (0-0.9); NEUTROPHILS # (AUTO) 15.1 X10'3 (1.8-7.7); NEUTROPHILS % (AUTO) 83.8 % (42-75); PLATELET COUNT 233 X10'3 (140-440); RED BLOOD COUNT 4.22 X10'6 (4.70-6.10); RED CELL DISTRIBUTION WIDTH 15.1 % (11.5-14.5)
[2023-02-07 06:59] LABS: ALANINE AMINOTRANSFERASE 28 U/L (12-78); ALBUMIN 1.5 G/DL (3.4-5.0); ALBUMIN/GLOBULIN RATIO 0.4 (1.1-1.5); ALKALINE PHOSPHATASE 70 IU/L (46-116); ANION GAP 8 (8-16); ASPARTATE AMINO TRANSFERASE 27 U/L (10-37); BLOOD UREA NITROGEN 20 MG/DL (7-18); BUN/CREATININE RATIO 24.4 (10.0-20.0); CALCIUM 7.8 MG/DL (8.5-10.1); CHLORIDE 109 MMOL/L (99-107); CREATININE 0.82 MG/DL (0.60-1.10); GLUCOSE 114 MG/DL (70-104); MAGNESIUM 1.7 MG/DL (1.5-2.4); PHOSPHORUS 3.3 MG/DL (2.3-4.5); POTASSIUM 3.9 MMOL/L (3.5-5.1); SODIUM 143 MMOL/L (135-145); TOTAL CARBON DIOXIDE 26.4 MMOL/L (24-32); TOTAL PROTEIN 5.3 G/DL (6.4-8.2); eGFR > 90 ML/MIN
[2023-02-07 07:20] VITALS: BP 178/108
--- NOTE | 2023-02-07 07:36 | NUR ---
Page to RT.. 347B Nemo GORDON: requesting NAVI guerrero. thanks! :) Addendum: 02/07/23 at 0737 by Holly Pedroza RN Amended: Links added.
[2023-02-07] MEDS: ipratropium/albuterol 3ml nebule NEB PRN ×2 (07:45→19:57)
[2023-02-07] MEDS: K and/or MAG REPLACEMENT MC SCH ×2 (08:00→18:27)
[2023-02-07] MEDS: magnesium hydroxide 30ml (MOM) UD suspension PO SCH ×2 (08:15→19:15)
[2023-02-07] MEDS: docusate sod 100mg capsule PO SCH ×2 (08:15→19:15)
[2023-02-07] MEDS: pantoprazole 40MG/NS 100ML BAG 100 ML IV SCH ×2 (08:15→19:15)
[2023-02-07] MEDS: cetirizine 10mg tablet PO SCH (08:16)
[2023-02-07] MEDS: heparin, porcine 5000 units/ml vial SQ SCH ×2 (08:16→19:15)
[2023-02-07] MEDS: losartan 50mg tablet PO SCH ×2 (08:16→19:15)
[2023-02-07] MEDS: VANCOmycin 1250MG/NS 250ml Bag 250 ML IV SCH (08:51)
[2023-02-07 11:28] VITALS: BP 143/82
[2023-02-07] MEDS: piperacillin/tazo 3.375gm/50ml 50 ML IV SCH ×2 (11:49→16:44)
--- NOTE | 2023-02-07 15:51 | NUR ---
Charting by Nuria LINARES reviewed by Glenn Velásquez RN
--- NOTE | 2023-02-07 16:14 | NUR ---
Patient was unable to roll or sit up for my to due a posterior respiratory assessment. Addendum: 02/07/23 at 1615 by Nuria Stein - MARISOL DA SILVA Amended: Links added.
--- NOTE | 2023-02-07 16:40 | NUR ---
Andrea DOBSON'faustina with VALENTIN sauceda. Andrea intact and removed without difficulty. Addendum: 02/07/23 at 1655 by Nuria Stein - MARISOL DA SILVA Amended: Links added.
[2023-02-07] MEDS: dextrose 5%-water 1,000 ML IV SCH (16:44)
[2023-02-07] MEDS ORDERED: potassium CL 20mEq in D5-1/2NS 1,000 ML IV SCH (16:45)
--- NOTE | 2023-02-07 17:04 | NUR ---
BETHANY drain removed, intact and with out difficulty.
[2023-02-07 18:00] VITALS: BP 125/74
--- NOTE | 2023-02-07 18:09 | NUR ---
Problems reprioritized. Patient report given, questions answered & plan of care reviewed with VALENTIN Taylor.
[2023-02-07] MEDS ORDERED: VANCOMYCIN LEVEL IV ONE (19:30)
[2023-02-07] MEDS: HYDROcodone/acetaminophen 5mg/325mg tablet PO PRN (21:44)
[2023-02-07 22:00] VITALS: BP 135/67
[2023-02-08] MEDS: piperacillin/tazo 3.375gm/50ml 50 ML IV SCH ×4 (00:17→23:29)
[2023-02-08 05:30] VITALS: BP 158/91
--- NOTE | 2023-02-08 06:30 | NUR ---
Patient in room [facility] 347. I have received report from VALENTIN Brandt and had the opportunity to ask questions and assume patient care.
[2023-02-08 06:55] LABS: BASOPHILS % (AUTO) 0 % (0-1); EOSINOPHILS # (AUTO) 0.4 X10'3 (0-0.9); HEMATOCRIT 36.5 % (42.0-52.0); HEMOGLOBIN 11.7 g/dl (14.0-17.9); LYMPHOCYTES # (AUTO) 0.9 X10'3 (1.1-4.8); LYMPHOCYTES % (AUTO) 5.3 % (21-51); MEAN CORPUSCULAR HEMOGLOBIN 27.1 PG (27.0-31.0); MEAN CORPUSCULAR VOLUME 84.6 FL (78-98); MEAN PLATELET VOLUME 8.8 FL (7.4-10.4); MONOCYTES # (AUTO) 1.2 X10'3 (0-0.9); MONOCYTES % (AUTO) 6.9 % (2-12); NEUTROPHILS % (AUTO) 85.8 % (42-75); PLATELET COUNT 258 X10'3 (140-440); RED BLOOD COUNT 4.31 X10'6 (4.70-6.10); RED CELL DISTRIBUTION WIDTH 15.5 % (11.5-14.5); WHITE BLOOD COUNT 17.5 X10'3 (4.5-11.0)
[2023-02-08 07:29] LABS: ALANINE AMINOTRANSFERASE 30 U/L (12-78); ALBUMIN 1.6 G/DL (3.4-5.0); ALBUMIN/GLOBULIN RATIO 0.4 (1.1-1.5); ALKALINE PHOSPHATASE 69 IU/L (46-116); ANION GAP 5 (8-16); ASPARTATE AMINO TRANSFERASE 32 U/L (10-37); BILIRUBIN,TOTAL 0.9 MG/DL (0.1-1.0); BLOOD UREA NITROGEN 14 MG/DL (7-18); BUN/CREATININE RATIO 19.2 (10.0-20.0); CHLORIDE 106 MMOL/L (99-107); CREATININE 0.73 MG/DL (0.60-1.10); GLUCOSE 103 MG/DL (70-104); MAGNESIUM 1.8 MG/DL (1.5-2.4); PHOSPHORUS 2.6 MG/DL (2.3-4.5); POTASSIUM 4.1 MMOL/L (3.5-5.1); SODIUM 139 MMOL/L (135-145); TOTAL CARBON DIOXIDE 27.8 MMOL/L (24-32); TOTAL PROTEIN 5.5 G/DL (6.4-8.2); eGFR > 90 ML/MIN
[2023-02-08] MEDS: docusate sod 100mg capsule PO SCH ×2 (08:00→20:16)
[2023-02-08] MEDS: K and/or MAG REPLACEMENT MC SCH ×2 (08:00→20:00)
[2023-02-08] MEDS: magnesium hydroxide 30ml (MOM) UD suspension PO SCH ×2 (08:00→20:19)
[2023-02-08] MEDS: pantoprazole 40MG/NS 100ML BAG 100 ML IV SCH (09:11)
[2023-02-08] MEDS: losartan 50mg tablet PO SCH ×2 (09:16→20:18)
[2023-02-08] MEDS: cetirizine 10mg tablet PO SCH (09:16)
[2023-02-08] MEDS: heparin, porcine 5000 units/ml vial SQ SCH ×2 (09:17→20:19)
[2023-02-08 10:00] VITALS: BP 138/70
[2023-02-08 10:30] VITALS: BP 158/91
--- NOTE | 2023-02-08 12:11 | NUR ---
Reassessment: Patient's diet was advanced to clear liquids 02/06 and pt documented with average 63% PO intake, insufficient to meet estimated nutrient needs d/t the nature of the diet. Pt has been advanced to regular diet starting lunch today, pending first meal since diet advancement. Serum Na now WNL and pt no longer receiving IV Dextrose. LBM 02/07 per I&O, first BM since admit. No nutrition intervention at this time pending trends in PO intake with diet advancement though pt will likely require nutrition intervention given stature and admitting dx. Will continue to follow closely and make recommendations as appropriate. Recommendations: 1) Continue regular diet 2) Monitor need for ONS/additional protein pending trends in PO intake; diet just advanced to regular lunch 02/08 3) Routine bowel care 4) Weekly scaled weights Addendum: 02/08/23 at [address] Amended: Links added.
[2023-02-08] MEDS: ipratropium/albuterol 3ml nebule NEB PRN (15:20)
[2023-02-08 18:00] VITALS: BP 133/61
--- NOTE | 2023-02-08 19:00 | NUR ---
Problems reprioritized. Patient report given, questions answered & plan of care reviewed with VALENTIN Henson.
[2023-02-08] MEDS: pantoprazole 40mg Tablet.DR PO SCH (20:18)
[2023-02-08 22:00] VITALS: BP 135/89
[2023-02-09 05:00] VITALS: BP 104/56
[2023-02-09 06:15] LABS: BASOPHILS % (AUTO) 0.2 % (0-1); EOSINOPHILS # (AUTO) 0.2 X10'3 (0-0.9); EOSINOPHILS % (AUTO) 1.3 % (0-6); HEMATOCRIT 33.6 % (42.0-52.0); HEMOGLOBIN 10.9 g/dl (14.0-17.9); LYMPHOCYTES # (AUTO) 0.8 X10'3 (1.1-4.8); MEAN CORPUSCULAR HEMOGLOBIN 27.2 PG (27.0-31.0); MEAN CORPUSCULAR HGB CONC 32.3 g/dL (33.0-36.5); MEAN CORPUSCULAR VOLUME 84.4 FL (78-98); MONOCYTES # (AUTO) 1.1 X10'3 (0-0.9); MONOCYTES % (AUTO) 6.8 % (2-12); NEUTROPHILS # (AUTO) 14.1 X10'3 (1.8-7.7); NEUTROPHILS % (AUTO) 86.7 % (42-75); PLATELET COUNT 282 X10'3 (140-440); RED BLOOD COUNT 3.98 X10'6 (4.70-6.10); RED CELL DISTRIBUTION WIDTH 15.1 % (11.5-14.5); WHITE BLOOD COUNT 16.3 X10'3 (4.5-11.0)
--- NOTE | 2023-02-09 06:20 | NUR ---
Patient in room [facility] 347. I have received report from VALENTIN Henson and had the opportunity to ask questions and assume patient care.
[2023-02-09 06:35] LABS: ALANINE AMINOTRANSFERASE 33 U/L (12-78); ALBUMIN 1.7 G/DL (3.4-5.0); ALBUMIN/GLOBULIN RATIO 0.5 (1.1-1.5); ALKALINE PHOSPHATASE 72 IU/L (46-116); ANION GAP 7 (8-16); ASPARTATE AMINO TRANSFERASE 30 U/L (10-37); BILIRUBIN,TOTAL 0.6 MG/DL (0.1-1.0); BLOOD UREA NITROGEN 17 MG/DL (7-18); BUN/CREATININE RATIO 24.6 (10.0-20.0); CALCIUM 7.8 MG/DL (8.5-10.1); CHLORIDE 107 MMOL/L (99-107); CREATININE 0.69 MG/DL (0.60-1.10); GLUCOSE 106 MG/DL (70-104); PHOSPHORUS 2.3 MG/DL (2.3-4.5); POTASSIUM 4.1 MMOL/L (3.5-5.1); SODIUM 142 MMOL/L (135-145); TOTAL CARBON DIOXIDE 28.4 MMOL/L (24-32); TOTAL PROTEIN 5.4 G/DL (6.4-8.2); eGFR > 90 ML/MIN
[2023-02-09] MEDS: losartan 50mg tablet PO SCH (07:37)
[2023-02-09] MEDS: K and/or MAG REPLACEMENT MC SCH (08:00)
[2023-02-09] MEDS ORDERED: magnesium hydroxide 30ml (MOM) UD suspension PO PRN (08:35)
[2023-02-09] MEDS ORDERED: docusate sod 100mg capsule PO PRN (08:35)
[2023-02-09] MEDS: piperacillin/tazo 3.375gm/50ml 50 ML IV SCH (09:23)
[2023-02-09] MEDS: pantoprazole 40mg Tablet.DR PO SCH (09:23)
[2023-02-09] MEDS: heparin, porcine 5000 units/ml vial SQ SCH (09:24)
[2023-02-09] MEDS ORDERED: bisacodyl 5mg tablet.DR PO PRN (09:25)
[2023-02-09 10:00] VITALS: BP 142/78
[2023-02-09] MEDS: ipratropium/albuterol 3ml nebule NEB PRN (15:31)
[2023-02-09] MEDS ORDERED: METR-159 PO (15:51)
[2023-02-09] MEDS ORDERED: CIPR-259 PO (15:51)
--- NOTE | 2023-02-09 18:20 | NUR ---
DC inst provided to pt & pt's . IV DC'd, tip intact. All belongings sent w/pt. WC to vehicle.
== END 2023-02-09 18:20 | disposition home or self-care (01) | DRG 853 ==
LOC: ER 10:18 → ED HOLD 14:22 → SUR 3N 16:25
PROVIDERS: ADMIT Internal Medicine; ATTEND Internal Medicine
PROC: 0D9670Z Drainage of Stomach with Drainage Device, Via Natural or Artificial Opening (ICD-10-PCS; 2023-02-01)
PROC: 3E0T3BZ Introduction of Anesthetic Agent into Peripheral Nerves and Plexi, Percutaneous Approach (ICD-10-PCS; 2023-02-02)
PROC: 3E0T33Z Introduction of Anti-inflammatory into Peripheral Nerves and Plexi, Percutaneous Approach (ICD-10-PCS; 2023-02-02)
PROC: 0DTJ0ZZ Resection of Appendix, Open Approach (ICD-10-PCS; principal; 2023-02-02 17:05)
DX: A41.9 Sepsis, unspecified organism (principal); N17.0 Acute kidney failure with tubular necrosis; R65.21 Severe sepsis with septic shock; E87.0 Hyperosmolality and hypernatremia; K35.20 Acute appendicitis with generalized peritonitis, without abscess; K40.30 Unilateral inguinal hernia, with obstruction, without gangrene, not specified as recurrent; E66.01 Morbid (severe) obesity due to excess calories; E86.0 Dehydration; B96.1 Klebsiella pneumoniae [K. pneumoniae] as the cause of diseases classified elsewhere; I10 Essential (primary) hypertension; I44.7 Left bundle-branch block, unspecified; Z79.899 Other long term (current) drug therapy; Z79.82 Long term (current) use of aspirin; Z68.29 Body mass index [BMI] 29.0-29.9, adult
CPT/HCPCS: 93306; 99285; Z7506; Z7508; 36415; 36600; 71045; 74176; 76770; 80048; 80053; 80202; 81001; 82570; 82803; 82948; 83605; 83690; 83735; 84100; 84145; 84156; 84300; 84443; 84484; 85007; 85018; 85025; 85610; 85730; 86704; 86705; 86706; 86885; 86900; 86901; 87040; 87070; 87075; 87076; 87077; 87081; 87088; 87185; 87186; 87207; 87340; 93005; 94640; 94760; 97116; 97161; 97530; A4338; A4615; A4618; A5200; A6212; A6213; A6253; A6266; A6402; A6407; A6449; A7000; C1758; C9113; C9290; G0378; J0131; J1644; J2250; J2270; J2405; J2543; J2710; J3010; J3370; J3480; J3490; J7030; J7040; J7042; J7070; J7120; J7121; P9045

== ENCOUNTER 2023-02-28 19:55 | Inpatient (IN) | payer BC ==
[~2023-02-28] VITALS: Ht 182.9 cm; Wt 95.3 kg
[~2023-02-28 19:55] MED LIST: ASPI-611 PO; LOSA50TA64 PO
[2023-02-28] MEDS ORDERED: morphine 4 MG/ML inj SYRINge IV ONE (20:55)
[2023-02-28] MEDS ORDERED: ondansetron/PF 4mg/2ml inj IV ONE (20:55)
[2023-02-28] MEDS ORDERED: normal saline 1000ML IV soln IVB ONE (20:55)
[2023-02-28 21:21] LABS: BASOPHILS % (AUTO) 0.3 % (0-1); EOSINOPHILS # (AUTO) 0.2 X10'3 (0-0.9); EOSINOPHILS % (AUTO) 1.1 % (0-6); HEMOGLOBIN 10.5 g/dl (14.0-17.9); LYMPHOCYTES # (AUTO) 1.6 X10'3 (1.1-4.8); LYMPHOCYTES % (AUTO) 11.2 % (21-51); MEAN CORPUSCULAR HEMOGLOBIN 26.7 PG (27.0-31.0); MEAN CORPUSCULAR HGB CONC 32.9 g/dL (33.0-36.5); MEAN CORPUSCULAR VOLUME 81.2 FL (78-98); MEAN PLATELET VOLUME 7.3 FL (7.4-10.4); MONOCYTES # (AUTO) 1.6 X10'3 (0-0.9); MONOCYTES % (AUTO) 11.2 % (2-12); NEUTROPHILS # (AUTO) 10.9 X10'3 (1.8-7.7); NEUTROPHILS % (AUTO) 76.2 % (42-75); PLATELET COUNT 364 X10'3 (140-440); RED BLOOD COUNT 3.95 X10'6 (4.70-6.10); RED CELL DISTRIBUTION WIDTH 15.5 % (11.5-14.5); WHITE BLOOD COUNT 14.3 X10'3 (4.5-11.0)
[2023-02-28 21:31] LABS: ALANINE AMINOTRANSFERASE 33 U/L (12-78); ALBUMIN 2.4 G/DL (3.4-5.0); ALBUMIN/GLOBULIN RATIO 0.5 (1.1-1.5); ALKALINE PHOSPHATASE 71 IU/L (46-116); ANION GAP 9 (8-16); ASPARTATE AMINO TRANSFERASE 22 U/L (10-37); BILIRUBIN,TOTAL 0.3 MG/DL (0.1-1.0); BLOOD UREA NITROGEN 22 MG/DL (7-18); BUN/CREATININE RATIO 25.9 (10.0-20.0); CALCIUM 8.8 MG/DL (8.5-10.1); CHLORIDE 102 MMOL/L (99-107); CREATININE 0.85 MG/DL (0.60-1.10); GLUCOSE 110 MG/DL (70-104); POTASSIUM 3.7 MMOL/L (3.5-5.1); SODIUM 138 MMOL/L (135-145); TOTAL CARBON DIOXIDE 27.2 MMOL/L (24-32); TOTAL PROTEIN 7.2 G/DL (6.4-8.2); eGFR > 90 ML/MIN
[2023-02-28] MEDS ORDERED: piperacillin/tazo 3.375gm/50ml 50 ML IV ONE (21:50)
[2023-02-28] MEDS ORDERED: GUAI600T45 PO (22:50)
[2023-02-28] MEDS ORDERED: ALBU6.7H14 INH (22:50)
[2023-02-28] MEDS ORDERED: ASPI-1071 PO (22:50)
[2023-02-28] MEDS ORDERED: magnesium hydroxide 30ml (MOM) UD suspension PO PRN (23:15)
[2023-02-28] MEDS ORDERED: magnesium Cl slow-release 64mg tablet PO PRN (23:15)
[2023-02-28] MEDS ORDERED: magnesium 2GM in 50ml NS 50 ML IV PRN (23:15)
[2023-02-28] MEDS ORDERED: magnesium 4gm in 100ml NS 100 ML IV PRN (23:15)
[2023-02-28] MEDS ORDERED: potassium Cl 40MEQ/1/2NS 520ml 520 ML IV PRN (23:15)
[2023-02-28] MEDS ORDERED: ondansetron/PF 4mg/2ml inj IV PRN (23:15)
[2023-02-28] MEDS ORDERED: potassium Cl 20 mEq SR tablet PO PRN ×2 (23:15)
[2023-02-28] MEDS ORDERED: mag hydrox/Alum hydrox/simeth 30ml oral suspension PO PRN (23:15)
[2023-02-28] MEDS ORDERED: morphine 2 MG/ML inj. syringe IV PRN (23:15)
[2023-02-28] MEDS ORDERED: non-formulary drug (Albuterol Sulfate (Proventil Hfa) 2 PUFFS) INH PRN (23:30)
[2023-02-28] MEDS ORDERED: guaiFENesin ER 600mg tablet PO PRN (23:30)
[2023-03-01] VITALS (17 sets, daily range): BP systolic 121–150; BP diastolic 68–84
[2023-03-01] MEDS: dextrose 5%-1/2 normal saline 1,000 ML IV SCH ×3 (00:09→21:30)
[2023-03-01 05:18] LABS: BASOPHILS # (AUTO) 0.1 X10'3 (0-0.2); BASOPHILS % (AUTO) 0.5 % (0-1); EOSINOPHILS # (AUTO) 0.2 X10'3 (0-0.9); EOSINOPHILS % (AUTO) 1.3 % (0-6); HEMATOCRIT 31.2 % (42.0-52.0); HEMOGLOBIN 10.1 g/dl (14.0-17.9); LYMPHOCYTES # (AUTO) 1.1 X10'3 (1.1-4.8); LYMPHOCYTES % (AUTO) 8.2 % (21-51); MEAN CORPUSCULAR HEMOGLOBIN 26.4 PG (27.0-31.0); MEAN CORPUSCULAR HGB CONC 32.2 g/dL (33.0-36.5); MEAN CORPUSCULAR VOLUME 81.9 FL (78-98); MEAN PLATELET VOLUME 7.4 FL (7.4-10.4); MONOCYTES # (AUTO) 1.4 X10'3 (0-0.9); MONOCYTES % (AUTO) 9.9 % (2-12); NEUTROPHILS % (AUTO) 80.1 % (42-75); PLATELET COUNT 338 X10'3 (140-440); RED BLOOD COUNT 3.81 X10'6 (4.70-6.10); RED CELL DISTRIBUTION WIDTH 15.4 % (11.5-14.5); WHITE BLOOD COUNT 13.7 X10'3 (4.5-11.0)
[2023-03-01 05:31] LABS: ALANINE AMINOTRANSFERASE 28 U/L (12-78); ALBUMIN 2.2 G/DL (3.4-5.0); ALBUMIN/GLOBULIN RATIO 0.5 (1.1-1.5); ALKALINE PHOSPHATASE 67 IU/L (46-116); ANION GAP 7 (8-16); ASPARTATE AMINO TRANSFERASE 17 U/L (10-37); BILIRUBIN,TOTAL 0.3 MG/DL (0.1-1.0); BLOOD UREA NITROGEN 19 MG/DL (7-18); CALCIUM 8.8 MG/DL (8.5-10.1); CHLORIDE 103 MMOL/L (99-107); CREATININE 0.73 MG/DL (0.60-1.10); GLUCOSE 107 MG/DL (70-104); MAGNESIUM 1.8 MG/DL (1.5-2.4); POTASSIUM 4.1 MMOL/L (3.5-5.1); SODIUM 139 MMOL/L (135-145); TOTAL CARBON DIOXIDE 29.1 MMOL/L (24-32); TOTAL PROTEIN 6.6 G/DL (6.4-8.2); eGFR > 90 ML/MIN
[2023-03-01] MEDS: piperacillin/tazo 3.375gm/50ml 50 ML IV SCH ×3 (06:42→22:24)
--- NOTE | 2023-03-01 06:42 | NUR ---
TRIED TO CALL AND GIV REPORT. ARABELLA WILL BGE TAKING HIM, SHE WAS BUSY STILL TAKING REPORT. WILL CALL BACK IN 10 MINUTES.
--- NOTE | 2023-03-01 06:57 | NUR ---
CALLED TO GIVE REPORT TO ARABELLA. SHE WAS IN ANOTHER PTS ROOM. WILL CALL ME BACK. I WILL CALL BACK IN 10 MINUTES.
--- NOTE | 2023-03-01 07:15 | NUR ---
Received report from ED CORE WINDER MACHINE OPERATORJasmin & RN, Brandi
[2023-03-01] MEDS: K and/or MAG REPLACEMENT MC SCH ×2 (08:00→20:10)
[2023-03-01] MEDS: enoxaparin 40mg/0.4ml syringe SUBCUT SCH (08:00)
[2023-03-01] MEDS: albuterol 2.5 MG/3 ML nebule NEB PRN (09:46)
[2023-03-01] MEDS: aspirin 81mg, enteric-coated 1 TAB TABLET.DR PO SCH (10:05)
[2023-03-01] MEDS: docusate sod 100mg capsule PO SCH ×2 (10:07→20:23)
[2023-03-01] MEDS: losartan 50mg tablet PO SCH ×2 (10:07→20:23)
[2023-03-01 10:25] LABS: APTT 31 SECONDS (22-32)
[2023-03-01] MEDS: morphine 2 MG/ML inj. syringe IV PRN ×2 (12:05→20:23)
--- NOTE | 2023-03-01 15:28 | NUR ---
PRESSURE ULCER EDUCATION: DEFINITION: A pressure ulcer is an area of skin that breaks down when you stay in one position too long. The constant pressure against the skin reduces the blood flow to that area and the affected tissue dies. CAUSES: "Being bedridden or in a wheelchair "Fragile skin "Having a chronic condition, such as diabetes or vascular disease "Inability to move certain parts of your body without assistance "Older age "Incontinence of urine or stool SYMPTOMS: "A reddened area that DOES NOT turn white when pressed on - this can be the beginning of a pressure ulcer "A blister, deep sore or a crater - these can be advanced pressure ulcers FIRST AID: "Relieve the pressure on this area "Keep the area clean and dry "Call your primary doctor if you see any of the above symptoms "DO NOT massage the area "DO NOT use a donut shaped or ring shaped pillow- these actually interfere with the blood flow and cause complications PREVENTION: "Check for pressure ulcers everyday "Change position at least every two hours to relieve pressure "Use items that help relieve pressure- pillows, sheepskin, foam padding, and powders. "Keep skin clean and dry "Eat healthy well balanced meals "Exercise daily IF YOU SEE ANY OF THESE SYMPTOMS WHILE IN THE HOSPITAL - TELL YOUR NURSE IMMEDIATELY. IF YOU SEE ANY OF THESE SYMPTOMS WHILE AT HOME OR HAVE ANY QUESTIONS OR CONCERNS ABOUT PRESSURE ULCERS - CALL YOUR PRIMARY DOCTOR IMMEDIATELY. Addendum: 03/01/23 at 1528 by Rocío George LVN Amended: Links added.
[2023-03-01] MEDS ORDERED: morphine 4 MG/ML inj SYRINge IV PRN (17:00)
[2023-03-01] MEDS ORDERED: ringers solution, lacted 1,000 ML IV SCH (17:00)
[2023-03-01] MEDS ORDERED: meperidine/PF 25mg/ml syringe IV PRN ×3 (17:00)
[2023-03-01] MEDS ORDERED: morphine 2 MG/ML inj. syringe IV PRN (17:00)
[2023-03-01] MEDS ORDERED: proCHLORperazine 10 MG/2 ml inj IV PRN (17:00)
[2023-03-01] MEDS ORDERED: ondansetron/PF 4mg/2ml inj IV PRN (17:00)
[2023-03-01] MEDS ORDERED: BUPIVAcaine/PF 2.5 mg/ml (0.25%) 30ml vial ONE (17:01)
[2023-03-01] MEDS ORDERED: midazolam 1 mg/ML 2ml injection ONE (17:08)
[2023-03-01] MEDS ORDERED: fentaNYL/PF 50MCG/1 ML 2ML syringe ONE ×2 (17:08→18:19)
[2023-03-01] MEDS ORDERED: rocuronium 10mg/ml inj IV ONE (17:09)
[2023-03-01] MEDS ORDERED: dexamethasone sod phosphate 4mg/ml inj. ONE (17:09)
[2023-03-01] MEDS ORDERED: LIDOcaine 2% (20mg/ml) 5ml vial ONE (17:09)
[2023-03-01] MEDS ORDERED: ondansetron/PF 4mg/2ml inj ONE (17:09)
[2023-03-01] MEDS ORDERED: propofol inj 20 ML IV ONE (17:09)
[2023-03-01] MEDS ORDERED: glycopyrrolate 0.2mg/ml inj ONE (17:25)
[2023-03-01] MEDS ORDERED: neostigmine methylsulfate 1 MG/ML 10ml vial ONE (17:25)
[2023-03-01] MEDS ORDERED: sevoflurane 250ml liquid IH ONE (17:25)
[2023-03-01] MEDS ORDERED: BUPIVAcaine/PF 2.5 mg/ml (0.25%) 30ml vial IJ ONE (18:05)
--- NOTE | 2023-03-01 18:43 | NUR ---
Received from OR via , accompanied by Anesthesiologist AMANDA AND OR NURSE and report given by Anesthesiolgist. PT IS DROWSY YET ABLE TO FOLLOW COMMANDS. DENIES PAIN OR DISCOMFORT. PT HAS RT SIDE DRESSING WITH AN INTERNAL PINROSE DRAIN AND PACKING AND LARGE ISLAND DRESSING; CDI. TAYLOR IS PRESENT AND PATENT. VSS Addendum: 03/01/23 at 1940 by Michelle Verduzco RN Amended: Links added.
[2023-03-01] MEDS ORDERED: naloxone 0.4 mg/ml inj IV PRN (18:45)
--- NOTE | 2023-03-01 18:49 | NUR ---
Patient in room ORTH[facility] 4010. I have received report from ARABELLA HANSON and had the opportunity to ask questions and assume patient care.
--- NOTE | 2023-03-01 18:50 | NUR ---
Problems reprioritized. Patient report given, questions answered & plan of care reviewed with VALENTIN Rouse.
--- NOTE | 2023-03-01 19:29 | NUR ---
Received report from Michelle HANSON in recovery. Patient will be transport back to his room and will resume care.
--- NOTE | 2023-03-01 19:33 | NUR ---
REPORT GIVEN AND ALL QUESTIONS ANSWERED. PATIENT TRANSFERRED TO ORTHO. BELONGINGS PRESENT IN ROOM. RN PRESENT ALL CRITERIA FOR TRANSFER BACK TO THE FLOOR HAS BEEN ACHIEVED. VSS. PAIN AT A TOLERABLE LEVEL. BED LOW, CALL LIGHT PRESENT AND 2 RAILS DOWN. RN AWARE THAT PATIENT HAS ARRIVED. TO ACCEPT CARE OF PATIENT. Addendum: 03/01/23 at 1949 by Michelle Verduzco RN Amended: Links added.
[2023-03-02] MEDS: HYDROcodone/acetaminophen 10/325mg tab PO PRN ×2 (01:18→17:39)
[2023-03-02 01:37] VITALS: BP 128/73
[2023-03-02] MEDS: acetaminophen 325mg tablet PO PRN ×2 (01:37→17:38)
[2023-03-02 05:00] VITALS: BP 121/74
[2023-03-02] MEDS: dextrose 5%-1/2 normal saline 1,000 ML IV SCH ×2 (05:15→13:45)
[2023-03-02 05:43] LABS: ALANINE AMINOTRANSFERASE 27 U/L (12-78); ALBUMIN/GLOBULIN RATIO 0.4 (1.1-1.5); ALKALINE PHOSPHATASE 63 IU/L (46-116); ANION GAP 5 (8-16); ASPARTATE AMINO TRANSFERASE 17 U/L (10-37); BILIRUBIN,TOTAL 0.8 MG/DL (0.1-1.0); BLOOD UREA NITROGEN 15 MG/DL (7-18); BUN/CREATININE RATIO 14.9 (10.0-20.0); CHLORIDE 101 MMOL/L (99-107); CREATININE 1.01 MG/DL (0.60-1.10); GLUCOSE 149 MG/DL (70-104); MAGNESIUM 1.6 MG/DL (1.5-2.4); POTASSIUM 4.3 MMOL/L (3.5-5.1); SODIUM 134 MMOL/L (135-145); TOTAL CARBON DIOXIDE 28.2 MMOL/L (24-32); TOTAL PROTEIN 6.5 G/DL (6.4-8.2); eGFR 75 ML/MIN
[2023-03-02] MEDS: piperacillin/tazo 3.375gm/50ml 50 ML IV SCH ×3 (05:45→20:30)
[2023-03-02 06:03] LABS: BASOPHILS % (AUTO) 0.1 % (0-1); EOSINOPHILS % (AUTO) 0 % (0-6); LYMPHOCYTES # (AUTO) 0.8 X10'3 (1.1-4.8); LYMPHOCYTES % (AUTO) 4.7 % (21-51); MEAN CORPUSCULAR HEMOGLOBIN 26.3 PG (27.0-31.0); MEAN CORPUSCULAR HGB CONC 32.4 g/dL (33.0-36.5); MEAN CORPUSCULAR VOLUME 81.1 FL (78-98); MEAN PLATELET VOLUME 8.2 FL (7.4-10.4); MONOCYTES # (AUTO) 1.3 X10'3 (0-0.9); MONOCYTES % (AUTO) 7.6 % (2-12); NEUTROPHILS # (AUTO) 15.1 X10'3 (1.8-7.7); NEUTROPHILS % (AUTO) 87.6 % (42-75); PLATELET COUNT 325 X10'3 (140-440); RED BLOOD COUNT 4.19 X10'6 (4.70-6.10); RED CELL DISTRIBUTION WIDTH 15.4 % (11.5-14.5); WHITE BLOOD COUNT 17.3 X10'3 (4.5-11.0)
--- NOTE | 2023-03-02 06:20 | NUR ---
Patient in room ORTHO 4010. I have received report from VALENTIN Rouse and had the opportunity to ask questions and assume patient care.
--- NOTE | 2023-03-02 06:25 | NUR ---
Problems reprioritized. Patient report given, questions answered & plan of care reviewed with ARABELLA RN.
[2023-03-02] MEDS: K and/or MAG REPLACEMENT MC SCH ×2 (07:48→19:30)
[2023-03-02] MEDS: losartan 50mg tablet PO SCH ×2 (09:11→19:30)
[2023-03-02] MEDS: enoxaparin 40mg/0.4ml syringe SUBCUT SCH (09:14)
[2023-03-02] MEDS: aspirin 81mg, enteric-coated 1 TAB TABLET.DR PO SCH (09:14)
[2023-03-02] MEDS: docusate sod 100mg capsule PO SCH ×2 (09:14→20:30)
[2023-03-02] MEDS: HYDROmorphone inj. 0.5 MG/0.5 ML DISP.SYRIN IV PRN ×3 (09:15→20:30)
[2023-03-02 10:00] VITALS: BP 105/53
[2023-03-02 13:11] LABS: HEMOGLOBIN A1C 6.1 % (4.5-6.2)
[2023-03-02 13:19] LABS: CHOL/HDL RATIO 4.6 (0.00-4.99); CHOLESTEROL 174 MG/DL (0-200); HDL CHOLESTEROL 38 MG/DL (35-60); LDL CHOLESTEROL 108 MG/DL (50-100); TRIGLYCERIDES 59 MG/DL (20-135)
[2023-03-02] MEDS: vancomycin/NS 1 GM ADD-VANTAGE 250 ML IV SCH (13:46)
[2023-03-02 14:08] LABS: CLARITY,URINE CLEAR (Clear); COLOR,URINE YELLOW (Yellow); GLUCOSE, URINE NEGATIVE (Neg); KETONES,URINE TRACE mg/dl (Neg); LEUKOCYTE ESTERASE ,URINE NEGATIVE (Neg); NITRITES, URINE NEGATIVE (Neg); OCCULT BLOOD,URINE TRACE-INTACT (Neg); PROTEIN,URINE TRACE mg/dl (Neg)
[2023-03-02 14:14] LABS: UA COLLECTION TYPE NON-SPECIFIED
[2023-03-02 14:15] LABS: BACTERIA,URINE NONE SEEN /HPF (Neg); MUCUS STRANDS NONE SEEN /LPF (Neg); RBC,URINE 0-2 /HPF (0-2); SQUAMOUS EPITHELIAL CELL,UR NONE SEEN /LPF (FEW); WBC,URINE 0-4 /HPF (0-4)
[2023-03-02 17:00] VITALS: BP 105/58
[2023-03-02 22:00] VITALS: BP 95/65
[2023-03-02] MEDS ORDERED: hydrOXYzine 25 MG tablet PO ONE ×2 (22:05→22:15)
[2023-03-03] MEDS: dextrose 5%-1/2 normal saline 1,000 ML IV SCH ×3 (00:18→21:15)
[2023-03-03] MEDS: vancomycin/NS 1 GM ADD-VANTAGE 250 ML IV SCH ×2 (02:16→14:59)
[2023-03-03] MEDS: HYDROmorphone inj. 0.5 MG/0.5 ML DISP.SYRIN IV PRN ×2 (02:17→05:47)
[2023-03-03 05:05] LABS: BASOPHILS % (AUTO) 0.1 % (0-1); EOSINOPHILS # (AUTO) 0.1 X10'3 (0-0.9); EOSINOPHILS % (AUTO) 0.9 % (0-6); HEMATOCRIT 31.5 % (42.0-52.0); HEMOGLOBIN 10.1 g/dl (14.0-17.9); LYMPHOCYTES % (AUTO) 6.9 % (21-51); MEAN CORPUSCULAR HEMOGLOBIN 26.2 PG (27.0-31.0); MEAN CORPUSCULAR HGB CONC 32.2 g/dL (33.0-36.5); MEAN CORPUSCULAR VOLUME 81.5 FL (78-98); MONOCYTES # (AUTO) 0.9 X10'3 (0-0.9); MONOCYTES % (AUTO) 5.8 % (2-12); NEUTROPHILS # (AUTO) 12.6 X10'3 (1.8-7.7); NEUTROPHILS % (AUTO) 86.3 % (42-75); PLATELET COUNT 296 X10'3 (140-440); RED BLOOD COUNT 3.86 X10'6 (4.70-6.10); RED CELL DISTRIBUTION WIDTH 15.3 % (11.5-14.5); WHITE BLOOD COUNT 14.7 X10'3 (4.5-11.0)
[2023-03-03 05:25] LABS: ALANINE AMINOTRANSFERASE 21 U/L (12-78); ALBUMIN 1.9 G/DL (3.4-5.0); ALBUMIN/GLOBULIN RATIO 0.4 (1.1-1.5); ALKALINE PHOSPHATASE 67 IU/L (46-116); ANION GAP 4 (8-16); ASPARTATE AMINO TRANSFERASE 16 U/L (10-37); BILIRUBIN,TOTAL 0.4 MG/DL (0.1-1.0); BLOOD UREA NITROGEN 16 MG/DL (7-18); BUN/CREATININE RATIO 17.4 (10.0-20.0); CALCIUM 8.5 MG/DL (8.5-10.1); CHLORIDE 100 MMOL/L (99-107); CREATININE 0.92 MG/DL (0.60-1.10); GLUCOSE 109 MG/DL (70-104); MAGNESIUM 1.7 MG/DL (1.5-2.4); PHOSPHORUS 3.3 MG/DL (2.3-4.5); POTASSIUM 3.9 MMOL/L (3.5-5.1); SODIUM 134 MMOL/L (135-145); TOTAL CARBON DIOXIDE 29.9 MMOL/L (24-32); TOTAL PROTEIN 6.3 G/DL (6.4-8.2); eGFR 83 ML/MIN
[2023-03-03 06:00] VITALS: BP 114/64
--- NOTE | 2023-03-03 06:10 | NUR ---
Problems reprioritized. Patient report given, questions answered & plan of care reviewed with VALENTIN Herron.
[2023-03-03] MEDS: piperacillin/tazo 3.375gm/50ml 50 ML IV SCH ×3 (06:47→23:52)
--- NOTE | 2023-03-03 06:52 | NUR ---
Patient in room ORTHO 4010A. I have received report from VALENTIN BELL and had the opportunity to ask questions and assume patient care.
[2023-03-03] MEDS: K and/or MAG REPLACEMENT MC SCH ×2 (08:00→20:00)
[2023-03-03] MEDS: aspirin 81mg, enteric-coated 1 TAB TABLET.DR PO SCH (08:45)
[2023-03-03] MEDS: docusate sod 100mg capsule PO SCH ×2 (08:45→21:00)
[2023-03-03] MEDS: enoxaparin 40mg/0.4ml syringe SUBCUT SCH (08:45)
[2023-03-03] MEDS: losartan 50mg tablet PO SCH ×2 (08:45→21:00)
[2023-03-03 10:00] VITALS: BP 108/71
[2023-03-03 18:00] VITALS: BP 107/64
--- NOTE | 2023-03-03 18:55 | NUR ---
Problems reprioritized. Patient report given, questions answered & plan of care reviewed with VALENTIN FELIZ.
--- NOTE | 2023-03-03 18:56 | NUR ---
Patient in room ORTHO 4010. I have received report from VALENTIN Herron and had the opportunity to ask questions and assume patient care. Patient sleeping comfortably, I will continue to monitor.
[2023-03-03] MEDS: magnesium hydroxide 30ml (MOM) UD suspension PO SCH (21:00)
[2023-03-04] MEDS ORDERED: VANCOMYCIN LEVEL IV ONE (01:30)
[2023-03-04] MEDS: vancomycin/NS 1 GM ADD-VANTAGE 250 ML IV SCH (02:27)
[2023-03-04] MEDS: dextrose 5%-1/2 normal saline 1,000 ML IV SCH ×2 (02:27→20:20)
[2023-03-04 02:32] LABS: BASOPHILS % (AUTO) 0.3 % (0-1); EOSINOPHILS # (AUTO) 0.2 X10'3 (0-0.9); EOSINOPHILS % (AUTO) 1.3 % (0-6); HEMATOCRIT 29.6 % (42.0-52.0); HEMOGLOBIN 9.4 g/dl (14.0-17.9); LYMPHOCYTES # (AUTO) 0.9 X10'3 (1.1-4.8); LYMPHOCYTES % (AUTO) 6.5 % (21-51); MEAN CORPUSCULAR HEMOGLOBIN 25.7 PG (27.0-31.0); MEAN CORPUSCULAR HGB CONC 31.8 g/dL (33.0-36.5); MEAN CORPUSCULAR VOLUME 80.8 FL (78-98); MONOCYTES % (AUTO) 6.7 % (2-12); NEUTROPHILS # (AUTO) 12.2 X10'3 (1.8-7.7); NEUTROPHILS % (AUTO) 85.2 % (42-75); PLATELET COUNT 312 X10'3 (140-440); RED BLOOD COUNT 3.66 X10'6 (4.70-6.10); RED CELL DISTRIBUTION WIDTH 15.4 % (11.5-14.5); WHITE BLOOD COUNT 14.3 X10'3 (4.5-11.0)
[2023-03-04 02:41] LABS: ALANINE AMINOTRANSFERASE 27 U/L (12-78); ALBUMIN 1.6 G/DL (3.4-5.0); ALBUMIN/GLOBULIN RATIO 0.4 (1.1-1.5); ALKALINE PHOSPHATASE 60 IU/L (46-116); ANION GAP 4 (8-16); ASPARTATE AMINO TRANSFERASE 30 U/L (10-37); BILIRUBIN,TOTAL 0.3 MG/DL (0.1-1.0); BLOOD UREA NITROGEN 14 MG/DL (7-18); BUN/CREATININE RATIO 13.7 (10.0-20.0); CALCIUM 8.7 MG/DL (8.5-10.1); CHLORIDE 102 MMOL/L (99-107); CREATININE 1.02 MG/DL (0.60-1.10); GLUCOSE 105 MG/DL (70-104); MAGNESIUM 1.8 MG/DL (1.5-2.4); PHOSPHORUS 3.5 MG/DL (2.3-4.5); POTASSIUM 4.1 MMOL/L (3.5-5.1); SODIUM 137 MMOL/L (135-145); TOTAL CARBON DIOXIDE 30.6 MMOL/L (24-32); TOTAL PROTEIN 5.8 G/DL (6.4-8.2); VANCOMYCIN,TROUGH 10.6 UG/ML (6.0-14.0); eGFR 74 ML/MIN
[2023-03-04 03:04] LABS: TOTAL CELLS COUNTED 100
[2023-03-04 03:05] LABS: PLATELET ESTIMATE NORMAL
[2023-03-04 06:00] VITALS: BP 115/66
--- NOTE | 2023-03-04 06:14 | NUR ---
Problems reprioritized. Patient report given, questions answered & plan of care reviewed with VALENTIN Torres.
[2023-03-04] MEDS: piperacillin/tazo 3.375gm/50ml 50 ML IV SCH ×2 (07:18→19:16)
[2023-03-04] MEDS: K and/or MAG REPLACEMENT MC SCH ×2 (08:00→20:00)
[2023-03-04 10:00] VITALS: BP 117/71
[2023-03-04] MEDS: magnesium hydroxide 30ml (MOM) UD suspension PO SCH ×2 (10:04→20:36)
[2023-03-04] MEDS: enoxaparin 40mg/0.4ml syringe SUBCUT SCH (10:05)
[2023-03-04] MEDS: aspirin 81mg, enteric-coated 1 TAB TABLET.DR PO SCH (10:05)
[2023-03-04] MEDS: docusate sod 100mg capsule PO SCH ×2 (10:05→20:36)
[2023-03-04] MEDS: losartan 50mg tablet PO SCH ×2 (10:09→20:36)
[2023-03-04] MEDS ORDERED: VANCOmycin 1250MG/NS 250ml Bag 250 ML IV SCH (14:00)
[2023-03-04 18:00] VITALS: BP 139/75
[2023-03-04 20:35] VITALS: BP 122/73
[2023-03-04 22:00] VITALS: BP 137/78
[2023-03-05] MEDS ORDERED: VANCOmycin 1250MG/NS 250ml Bag 250 ML IV SCH (02:04)
[2023-03-05] MEDS: dextrose 5%-1/2 normal saline 1,000 ML IV SCH ×2 (03:15→17:51)
[2023-03-05] MEDS: piperacillin/tazo 3.375gm/50ml 50 ML IV SCH ×3 (03:36→21:06)
[2023-03-05 06:00] VITALS: BP 127/77
[2023-03-05 06:13] LABS: BASOPHILS % (AUTO) 0.3 % (0-1); EOSINOPHILS # (AUTO) 0.3 X10'3 (0-0.9); EOSINOPHILS % (AUTO) 2.6 % (0-6); HEMATOCRIT 30.1 % (42.0-52.0); HEMOGLOBIN 9.8 g/dl (14.0-17.9); LYMPHOCYTES # (AUTO) 0.9 X10'3 (1.1-4.8); LYMPHOCYTES % (AUTO) 7.1 % (21-51); MEAN CORPUSCULAR HEMOGLOBIN 26.2 PG (27.0-31.0); MEAN CORPUSCULAR HGB CONC 32.5 g/dL (33.0-36.5); MEAN CORPUSCULAR VOLUME 80.4 FL (78-98); MEAN PLATELET VOLUME 7.9 FL (7.4-10.4); MONOCYTES % (AUTO) 7.8 % (2-12); NEUTROPHILS # (AUTO) 10.3 X10'3 (1.8-7.7); NEUTROPHILS % (AUTO) 82.2 % (42-75); PLATELET COUNT 358 X10'3 (140-440); RED BLOOD COUNT 3.75 X10'6 (4.70-6.10); RED CELL DISTRIBUTION WIDTH 15.5 % (11.5-14.5); WHITE BLOOD COUNT 12.5 X10'3 (4.5-11.0)
[2023-03-05 06:24] LABS: ALANINE AMINOTRANSFERASE 47 U/L (12-78); ALBUMIN 1.7 G/DL (3.4-5.0); ALBUMIN/GLOBULIN RATIO 0.4 (1.1-1.5); ALKALINE PHOSPHATASE 71 IU/L (46-116); ANION GAP 3 (8-16); ASPARTATE AMINO TRANSFERASE 45 U/L (10-37); BILIRUBIN,TOTAL 0.3 MG/DL (0.1-1.0); BLOOD UREA NITROGEN 12 MG/DL (7-18); BUN/CREATININE RATIO 12.4 (10.0-20.0); CALCIUM 8.9 MG/DL (8.5-10.1); CHLORIDE 103 MMOL/L (99-107); CREATININE 0.97 MG/DL (0.60-1.10); GLUCOSE 103 MG/DL (70-104); PHOSPHORUS 2.5 MG/DL (2.3-4.5); POTASSIUM 3.9 MMOL/L (3.5-5.1); SODIUM 137 MMOL/L (135-145); TOTAL CARBON DIOXIDE 30.6 MMOL/L (24-32); TOTAL PROTEIN 6.2 G/DL (6.4-8.2); eGFR 78 ML/MIN
--- NOTE | 2023-03-05 06:41 | NUR ---
Problems reprioritized. Patient report given, questions answered & plan of care reviewed with VALENTIN ALATORRE.
[2023-03-05] MEDS: magnesium hydroxide 30ml (MOM) UD suspension PO SCH ×2 (07:55→20:00)
[2023-03-05] MEDS: docusate sod 100mg capsule PO SCH ×2 (07:56→20:00)
[2023-03-05] MEDS: K and/or MAG REPLACEMENT MC SCH ×2 (08:00→20:00)
[2023-03-05] MEDS: aspirin 81mg, enteric-coated 1 TAB TABLET.DR PO SCH (09:08)
[2023-03-05] MEDS: losartan 50mg tablet PO SCH ×2 (09:09→21:11)
[2023-03-05] MEDS: enoxaparin 40mg/0.4ml syringe SUBCUT SCH (09:10)
[2023-03-05 10:30] VITALS: BP 132/83
--- NOTE | 2023-03-05 14:21 | NUR ---
Initial: Pt admit DX bilateral hernias w/ R being incarcerated s/p OR 03/01 for incarcerated hernia repair w/ hx recent appendectomy per EMR. Advanced to full liquids 03/03 WS from initial clear liquids 03/02 post-op; no intake BIDBL yesterday and pending intake documentation today though meals documented ~75-100% initial liquids diets. Receiving D5/half NS at 100ml/hr per EMR providing 408 kcals/day. Not meeting needs given restrictive nature of diets would benefit from diet advancement to regular. LBM 03/05 w/ BM yesterday also receiving routine colace and MoM per EMR. If diet to not advance would benefit from ONS to better meet needs; will send smoothie TIDWM in meantime-dietary notified. Will monitor for further nutrition intervention needs this admit. Rec: 1. advance to regular diet given functional gut post-op per documentation in EMR 2. smoothie TIDWM while on full liquids; IF to remain on restrictive liquids diets consider Ensure TIDWM to better meet needs 3. routine bowel care 4. weekly wt Addendum: 03/05/23 at [address] Amended: Links added.
[2023-03-05] MEDS: VANCOmycin 1250MG/NS 250ml Bag 250 ML IV SCH (17:04)
[2023-03-05 18:00] VITALS: BP 139/85
[2023-03-05 21:11] VITALS: BP 139/79
[2023-03-06] MEDS ORDERED: VANCOMYCIN LEVEL IV ONE ×2 (01:30→04:30)
[2023-03-06] MEDS ORDERED: piperacillin/tazo 3.375gm/50ml 50 ML IV SCH (02:54)
[2023-03-06 04:57] LABS: BASOPHILS # (AUTO) 0.1 X10'3 (0-0.2); BASOPHILS % (AUTO) 0.5 % (0-1); EOSINOPHILS # (AUTO) 0.4 X10'3 (0-0.9); EOSINOPHILS % (AUTO) 3.4 % (0-6); HEMATOCRIT 28.9 % (42.0-52.0); HEMOGLOBIN 9.6 g/dl (14.0-17.9); LYMPHOCYTES # (AUTO) 0.9 X10'3 (1.1-4.8); LYMPHOCYTES % (AUTO) 8.3 % (21-51); MEAN CORPUSCULAR HEMOGLOBIN 26.6 PG (27.0-31.0); MEAN CORPUSCULAR HGB CONC 33.3 g/dL (33.0-36.5); MEAN CORPUSCULAR VOLUME 79.9 FL (78-98); MEAN PLATELET VOLUME 7.5 FL (7.4-10.4); NEUTROPHILS # (AUTO) 8.9 X10'3 (1.8-7.7); NEUTROPHILS % (AUTO) 78.8 % (42-75); PLATELET COUNT 366 X10'3 (140-440); RED BLOOD COUNT 3.61 X10'6 (4.70-6.10); RED CELL DISTRIBUTION WIDTH 15.8 % (11.5-14.5); WHITE BLOOD COUNT 11.3 X10'3 (4.5-11.0)
[2023-03-06] MEDS: VANCOmycin 1250MG/NS 250ml Bag 250 ML IV SCH (05:04)
[2023-03-06] MEDS: dextrose 5%-1/2 normal saline 1,000 ML IV SCH ×2 (05:08→23:44)
[2023-03-06 05:45] LABS: ALANINE AMINOTRANSFERASE 61 U/L (12-78); ALBUMIN 1.8 G/DL (3.4-5.0); ALBUMIN/GLOBULIN RATIO 0.4 (1.1-1.5); ALKALINE PHOSPHATASE 72 IU/L (46-116); ANION GAP 4 (8-16); ASPARTATE AMINO TRANSFERASE 50 U/L (10-37); BILIRUBIN,TOTAL 0.3 MG/DL (0.1-1.0); BLOOD UREA NITROGEN 10 MG/DL (7-18); BUN/CREATININE RATIO 9.2 (10.0-20.0); CHLORIDE 104 MMOL/L (99-107); CREATININE 1.09 MG/DL (0.60-1.10); GLUCOSE 102 MG/DL (70-104); SODIUM 138 MMOL/L (135-145); TOTAL PROTEIN 6.2 G/DL (6.4-8.2); eGFR 69 ML/MIN
[2023-03-06 05:46] LABS: MAGNESIUM 1.8 MG/DL (1.5-2.4); PHOSPHORUS 3.3 MG/DL (2.3-4.5)
[2023-03-06 05:52] LABS: VANCOMYCIN,TROUGH 21.5 UG/ML (6.0-14.0)
--- NOTE | 2023-03-06 06:42 | NUR ---
Problems reprioritized. Patient report given, questions answered & plan of care reviewed with VALENTIN JIANG.
[2023-03-06 07:10] VITALS: BP 139/82
[2023-03-06] MEDS: docusate sod 100mg capsule PO SCH ×2 (08:00→19:39)
[2023-03-06] MEDS: K and/or MAG REPLACEMENT MC SCH ×2 (08:00→19:35)
[2023-03-06] MEDS: magnesium hydroxide 30ml (MOM) UD suspension PO SCH ×2 (08:00→19:39)
[2023-03-06] MEDS: piperacillin/tazo 3.375gm/50ml 50 ML IV SCH ×3 (08:57→23:43)
[2023-03-06] MEDS: losartan 50mg tablet PO SCH ×2 (08:58→19:42)
[2023-03-06] MEDS: aspirin 81mg, enteric-coated 1 TAB TABLET.DR PO SCH (08:58)
[2023-03-06] MEDS: enoxaparin 40mg/0.4ml syringe SUBCUT SCH (08:58)
[2023-03-06 11:00] VITALS: BP 124/76
--- NOTE | 2023-03-06 16:53 | NUR ---
voicemail sent to Dr. Harvey regarding aicha drain that is still in place. According to report and smelter charger. yesterdays primary nurse received a verbal order to remove the drain. this was not completed and there is no note or order regarding this. Awaiting MD telephone call for orders.
[2023-03-06] MEDS: vancomycin/NS 1 GM ADD-VANTAGE 250 ML IV SCH (17:15)
[2023-03-06 18:00] VITALS: BP 144/84
--- NOTE | 2023-03-06 18:16 | NUR ---
Problems reprioritized. Patient report given, questions answered & plan of care reviewed with VALENTIN Franklin.
--- NOTE | 2023-03-06 18:32 | NUR ---
Patient in room ORTHO 4010. I have received report from VALENTIN Kilgore and had the opportunity to ask questions and assume patient care.
[2023-03-06 22:00] VITALS: BP 149/89
[2023-03-07 02:00] VITALS: BP 129/75
[2023-03-07] MEDS: vancomycin/NS 1 GM ADD-VANTAGE 250 ML IV SCH (05:05)
[2023-03-07 06:00] VITALS: BP 150/75
[2023-03-07 06:29] LABS: BASOPHILS # (AUTO) 0.1 X10'3 (0-0.2); BASOPHILS % (AUTO) 0.5 % (0-1); EOSINOPHILS # (AUTO) 0.4 X10'3 (0-0.9); HEMATOCRIT 29.2 % (42.0-52.0); HEMOGLOBIN 9.7 g/dl (14.0-17.9); LYMPHOCYTES # (AUTO) 1.2 X10'3 (1.1-4.8); LYMPHOCYTES % (AUTO) 8.9 % (21-51); MEAN CORPUSCULAR HEMOGLOBIN 26.6 PG (27.0-31.0); MEAN CORPUSCULAR HGB CONC 33.2 g/dL (33.0-36.5); MEAN CORPUSCULAR VOLUME 80.1 FL (78-98); MEAN PLATELET VOLUME 7.6 FL (7.4-10.4); MONOCYTES # (AUTO) 1.3 X10'3 (0-0.9); NEUTROPHILS # (AUTO) 10.2 X10'3 (1.8-7.7); NEUTROPHILS % (AUTO) 77.6 % (42-75); PLATELET COUNT 404 X10'3 (140-440); RED BLOOD COUNT 3.64 X10'6 (4.70-6.10); RED CELL DISTRIBUTION WIDTH 15.7 % (11.5-14.5); WHITE BLOOD COUNT 13.1 X10'3 (4.5-11.0)
--- NOTE | 2023-03-07 06:30 | NUR ---
Problems reprioritized. Patient report given, questions answered & plan of care reviewed with VALENTIN Singh.
[2023-03-07 06:41] LABS: ALANINE AMINOTRANSFERASE 51 U/L (12-78); ALBUMIN 1.9 G/DL (3.4-5.0); ALBUMIN/GLOBULIN RATIO 0.4 (1.1-1.5); ALKALINE PHOSPHATASE 68 IU/L (46-116); ANION GAP 2 (8-16); ASPARTATE AMINO TRANSFERASE 36 U/L (10-37); BILIRUBIN,TOTAL 0.3 MG/DL (0.1-1.0); BLOOD UREA NITROGEN 11 MG/DL (7-18); BUN/CREATININE RATIO 8.7 (10.0-20.0); CALCIUM 8.8 MG/DL (8.5-10.1); CHLORIDE 105 MMOL/L (99-107); CREATININE 1.26 MG/DL (0.60-1.10); GLUCOSE 104 MG/DL (70-104); MAGNESIUM 1.9 MG/DL (1.5-2.4); PHOSPHORUS 4.1 MG/DL (2.3-4.5); POTASSIUM 4.2 MMOL/L (3.5-5.1); SODIUM 138 MMOL/L (135-145); TOTAL CARBON DIOXIDE 31.1 MMOL/L (24-32); TOTAL PROTEIN 6.8 G/DL (6.4-8.2); eGFR 58 ML/MIN
--- NOTE | 2023-03-07 06:51 | NUR ---
Patient in room ORTHO 4010. I have received report from Shanelle HANSON and had the opportunity to ask questions and assume patient care.
[2023-03-07] MEDS: piperacillin/tazo 3.375gm/50ml 50 ML IV SCH (07:09)
[2023-03-07] MEDS: aspirin 81mg, enteric-coated 1 TAB TABLET.DR PO SCH (07:43)
[2023-03-07] MEDS: magnesium hydroxide 30ml (MOM) UD suspension PO SCH (07:43)
[2023-03-07] MEDS: docusate sod 100mg capsule PO SCH (07:43)
[2023-03-07] MEDS: losartan 50mg tablet PO SCH (07:44)
[2023-03-07 07:45] VITALS: BP 137/81
[2023-03-07] MEDS: enoxaparin 40mg/0.4ml syringe SUBCUT SCH (07:45)
[2023-03-07] MEDS: K and/or MAG REPLACEMENT MC SCH (08:00)
[2023-03-07 10:00] VITALS: BP 143/80
[2023-03-07] MEDS: albuterol 2.5 MG/3 ML nebule NEB PRN (10:50)
[2023-03-07] MEDS ORDERED: AMOX-580 PO ×2 (13:10)
[2023-03-07] MEDS ORDERED: LACT1CAP26 PO (13:10)
[2023-03-07] MEDS ORDERED: DOCU100C40 PO (13:10)
[2023-03-07] MEDS ORDERED: HYDR-3965 PO (13:10)
[2023-03-07] MEDS ORDERED: LEVO750T68 PO (13:25)
--- NOTE | 2023-03-07 14:30 | NUR ---
[facility] pharmacy contacted as requested by Dr. Perrin to ensure that Augmentin was cancelled and to confirm Levaquin. Pharmacist confirmed that is correct
--- NOTE | 2023-03-07 16:33 | NUR ---
Patient stable and appropriate for discharge. Patient AOx4 able to make needs known. Discharge cleared by Dr. Colin. Wound care performed, education/demo provided to patient and his . All questions answered, aicha drain in place upon discharge as ordered by Dr. Colin. Wound care supplies provided. Discharge paperwork reviewed and signed by patient, education provided re wound care, infection prevention, and restrictions. Patient and stated understanding, did not have any questions. PIV removed, cannula intact. Patient tolerated well. Patient was encouraged to follow up as scheduled with Dr. Colin. All belongings accounted for and sent home with patient. Assisted patient out of facility via w/c, patient independent into wifes car.
[2023-03-07] MEDS ORDERED: amox tr/potassium clavulanate 500mg/125mg TAB PO SCH (17:30)
--- NOTE | 2023-03-07 19:01 | NUR ---
Student documentation: I have reviewed and agree with all interventions, assessments performed and documented by Samantha FLORES. Addendum: 03/07/23 at 1904 by Nieves Cintron RN added my own findings.
[2023-03-08] MEDS ORDERED: VANCOMYCIN LEVEL IV ONE (04:30)
== END 2023-03-07 16:20 | disposition home or self-care (01) | DRG 395 ==
LOC: ER 19:56 → UNDOADMIN 23:16 → ED HOLD 23:16 → ORTHO 4S 03-01 07:55
PROVIDERS: ADMIT Internal Medicine; ATTEND Family Medicine
PROC: 0V9 Male Reproductive System, Drainage (ICD-10-PCS; principal; 2023-03-01 17:25)
DX: K40.30 Unilateral inguinal hernia, with obstruction, without gangrene, not specified as recurrent (principal); B95.4 Other streptococcus as the cause of diseases classified elsewhere; I10 Essential (primary) hypertension; B96.1 Klebsiella pneumoniae [K. pneumoniae] as the cause of diseases classified elsewhere; J44.9 Chronic obstructive pulmonary disease, unspecified; N49.1 Inflammatory disorders of spermatic cord, tunica vaginalis and vas deferens; Z79.899 Other long term (current) drug therapy; R50.9 Fever, unspecified; Z90.49 Acquired absence of other specified parts of digestive tract
CPT/HCPCS: 99285; Z7506; Z7508; 36415; 71045; 74176; 80053; 80061; 80202; 81001; 82948; 83036; 83605; 83735; 84100; 84145; 84443; 85007; 85025; 85610; 85730; 87040; 87070; 87075; 87076; 87077; 87081; 87185; 87186; 93005; 94640; 94760; A4215; A4615; A4618; A5200; A6212; A6213; A6223; A6250; A6253; A6258; A6266; A6407; A6449; A7000; G0378; J1100; J1170; J1650; J2175; J2250; J2270; J2405; J2543; J2704; J2710; J3010; J3370; J3490; J7030; J7120; Q0177